=== PATIENT | female | born 1950 | race Caucasian/White ===

== ENCOUNTER → 2016-05-15 | Day surgery (SDC) | payer MEDICARE ==
[~2016-05-15] MED LIST: Betamethasone INJ* 6 MG/ML 5 ML VIAL (30 MG) ONE; Lidocain 1% EPI 1:100,000 * 30 ML MDV ONE; Lidocaine 1% MPF* 2 ML VIAL ONE; Sodium Bicarbonate 8.4% SYR* 10 ML SYRINGE ONE
[2016-05-15 14:34] VITALS: BP 133/76
--- NOTE | 2016-05-16 02:40 | OP ---
DATE OF OPERATION: 05/15/16 LOCATED WITHIN [facility] DATE OF : 46 SURGEON: Jeff Tesfaye MD. PERMIT REVIEW ASSISTANT: MELISA Villa. ANESTHESIOLOGIST: None. ANESTHESIA: Local only, with 1% lidocaine with epinephrine. PRE-OP DIAGNOSES: 1. Right thumb trigger finger. 2. Left long finger trigger finger. 3. Left long finger volar ganglion cyst of the A1 jerilyn. POST-OP DIAGNOSES: 1. Right thumb trigger finger. 2. Left long finger trigger finger. 3. Left long finger volar ganglion cyst of the A1 jerilyn. OPERATIVE PROCEDURES: 1. Right thumb A1 jerilyn release. 2. Left long finger trigger finger injection. 3. Aspiration of left long finger volar A1 jerilyn ganglion cyst. INDICATIONS: Мария is a 65-year-old female who has right thumb and left long finger trigger fingers. I had injected these in the office a couple of months ago. The left long finger had gotten all the way better and was doing great when I saw her in the office a couple of weeks ago. The right thumb was triggering again. We had talked about risks and benefits and she had elected to proceed with right thumb trigger finger release. 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 ESTIMATED BLOOD LOSS: 5 mL. COMPLICATIONS: None. FINDINGS: As expected. DESCRIPTION OF PROCEDURE: Мария was seen in the preoperative holding area and the correct side and site were marked. I then cleansed the skin with some alcohol and injected lidocaine 1% with epinephrine and a little bit of bicarbonate into the right thumb A1 jerilyn area to anesthetize the area. After I finished that, I went over and cleaned up the area over the volar A1 jerilyn area of the left long finger. Using a 30-gauge needle, I then introduced a little bit of 1% lidocaine with epinephrine and betamethasone, approximately 0.5 cc. I waited a minute and then I introduced a 22-gauge needle through the skin in the anesthetized area. This was taken down to the area of the volar retinacular cyst. The tip of the needle was used to aguilar the cyst and then by applying some pressure over the area of the cyst, I was able to drain the cyst. A 22-gauge needle was withdrawn and I then re- introduced a 30-gauge needle and injected the rest of 1 mL of 1% lidocaine and 1 mL of betamethasone. She tolerated this well. The area was cleansed and Band-Aid was applied. We then came back to the operating room where the right arm was prepped and draped in the usual fashion and a formal time-out was performed. Incision was made along the volar metacarpophalangeal joint flexion crease. Dissection was done with a tenotomy scissors. The ulnar and radial digital nerves to the thumb were identified and protected with some Ragnell retractors. I then used the knife to incise longitudinally the A1 jerilyn area over the right thumb. This was very thickened and nodular. I ultimately was able to get down to the tendon. I then completed the release by releasing just a little bit more distally and proximally with a tenotomy scissors. The tendon did appear healthy. I then let down the drapes so she could see and I had her flex and extend the thumb many times to see if she can induce any triggering whatsoever. She could not. I then went ahead and irrigated the area and closed the skin with some 5-0 nylon suture. The wound was dressed with Xeroform , 4x4, 2-inch Webril, and an Alejandro wrap. She was then taken to the recovery room in stable condition. [id number] #: [id number] MTDTrent
== END | disposition home or self-care (01) ==
LOC: OREAST 09:35
PROVIDERS: ATTEND Orthopaedic Surgery Hand Surgery
DX: M65.311 Trigger thumb, right thumb (principal); M65.332 Trigger finger, left middle finger; M67.442 Ganglion, left hand
CPT/HCPCS: J0702

== ENCOUNTER 2017-08-09 06:27 | Day surgery (SDC) | payer MEDICARE ==
[2017-08-09] MEDS ORDERED: Bupivacaine 0.25% SDV* 30 ML ONE (07:06)
[2017-08-09] MEDS ORDERED: Lidocain 1% EPI 1:100,000 * 30 ML MDV ONE (07:18)
[2017-08-09] MEDS ORDERED: Sodium Bicarbonate 8.4%* 50 ML SYRINGE ONE (07:18)
[2017-08-09 08:03] VITALS: BP 125/72
--- NOTE | 2017-08-09 14:06 | OP ---
DATE OF OPERATION: 08/09/17 - [facility] DATE OF : 46 SURGEON: Jeff Tesfaye MD. SUPPORTIVE EMPLOYMENT CASE MANAGER: MELISA Tay. ANESTHESIOLOGIST: None. ANESTHESIA: Local only with 1% lidocaine with bicarbonate and epinephrine. PRE-OP DIAGNOSES: 1. Left middle trigger finger. 2. Left middle finger A1 jerilyn tendon sheath mass. POST-OP DIAGNOSES: 1. Left middle trigger finger. 2. Left middle finger A1 jerilyn tendon sheath mass. OPERATIVE PROCEDURE: 1. Excision of left middle finger tendon sheath mass. 2. Left middle finger A1 jerilyn release. INDICATIONS: Мария has had a chronic left middle trigger finger. She had done well with right trigger thumb release. The nodule was quite bothersome to her. It was large, wanted to have it excised, and the trigger finger released. ESTIMATED BLOOD LOSS: 5 mL. COMPLICATIONS: None. FINDINGS: See above and below. DESCRIPTION OF PROCEDURE: Мария was seen in the preoperative holding area. The correct side, site, and procedure were identified. I anesthetized the area with 1% lidocaine with epinephrine and bicarbonate. We came back to the operating room. The arm was prepped and draped in the usual fashion. I then made an oblique incision along the flexion crease. Dissection was carried down bluntly and full thickness flaps were raised off the mass of the palmar aspect of the A1 jerilyn. This was excised with the knife. It was sent as a specimen. I then incised longitudinally the A1 jerilyn just on the radial third of the jerilyn in line with the tendon. Release was completed distally and proximally with tenotomy scissors. Once it was fully released, we irrigated out the wound. I had her flex and extend the finger multiple times. She did not induce any triggering. Therefore, I irrigated out the wound. Skin was closed with 4-0 nylon suture. Some Marcaine was infiltrated. The wound was dressed with Xeroform, some gauze, and Tegaderm. She was taken to the recovery room in stable condition. [id number] #: [id number] MTDD
== END 2017-08-09 08:12 | disposition home or self-care (01) ==
LOC: OREAST 06:27
PROVIDERS: ATTEND Orthopaedic Surgery Hand Surgery
DX: M65.332 Trigger finger, left middle finger (principal); M67.442 Ganglion, left hand
CPT/HCPCS: 88304

== ENCOUNTER 2018-01-19 10:56 | Emergency (ER) | payer MEDICARE ==
--- OUTSIDE RECORDS SUMMARY | 2018-01-19 11:09 | XMS REPORT ---
:1950 External Reference #:[id number] Author Organization [facility] Address [address], [address] [place] [address] Phone [phone] Care Team Providers Name Role Phone Melissa Sanabria MD Care Team Information Lead Manufacturing Engineer Unavailable Melissa Sanabria MD Primary Care Physician Unavailable Payers Type Date Identification Numbers Payment Provider Subscriber Medicare Primary Policy Number: [id number] Medicare Мария Hurtado Group Name: Medicare [address] PayID: [id number] [place] [address] [facility] Part B Policy Number: [id number] [facility] Мария Hurtado PayID: [id number] [address] [place] [address] Problems Date Description Provider Status Onset: 05/17/2011 Chest pain Dalton Tyson Active M.D., FACC Onset: 05/17/2011 Palpitations Dalton Tyson Active M.D., FACC Onset: 01/12/2012 Pure hypercholesterolemia Myrick, Paula Brady, Active MSN, DATABASE ADMINISTRATOR Onset: 05/27/2012 Family history of malignant neoplasm Juno Plaza MD Active of breast Onset: 12/08/2014 Disorder of back Jeff Malin M.D. Active Onset: 08/01/2011 Bladder muscle dysfunction - Sanjuanita Gonzalez FNP Active overactive Onset: 08/01/2011 Intrinsic asthma without status Sanjuanita Gonzalez FNP Active asthmaticus Onset: 08/01/2011 Gastroesophageal reflux disease Sanjuanita Gonzalez FNP Active Onset: 02/22/2015 Osteopenia Mackenzie Hernandez M.D. Active Onset: 05/20/2015 Essential hypertension Dalton Tyson Active M.D., [facility] Onset: 08/02/2015 Acute bronchitis Melissa Sanabria MD Active Onset: 08/05/2015 Exacerbation of intermittent asthma Melissa Sanabria MD Active Onset: 08/16/2015 Malaise and fatigue Melissa Sanabria MD Active Onset: 08/16/2015 Mild intermittent asthma Melissa Sanabria MD Active Onset: 11/10/2015 Spontaneous ecchymosis Melissa Sanabria MD Active Onset: 08/28/2016 Mild intermittent asthma Melissa Sanabria MD Active Onset: 08/28/2016 Paroxysmal supraventricular Melissa Sanabria MD Active tachycardia Onset: 08/28/2016 Edema Melissa Sanabria MD Active Onset: 08/28/2016 Polyosteoarthritis, unspecified Melissa Sanabria MD Active Onset: 03/07/2017 Gynecologic examination Melissa Sanabria MD Active Onset: 09/05/2017 Screening for malignant neoplasm of Melissa Sanabria MD Active colon Onset: 09/05/2017 Mild persistent asthma Melissa Sanabria MD Active Onset: 08/28/2016 Mixed hyperlipidemia Active Family History Date Family Member(s) Problem(s) Comments : (age 69 Father due to Heart ME, AND KIDNEY DISEASE Years) Disease Father Heart Attack Father Kidney Disease Onset: (age 93 Mother No known family history Years) of CAD. 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 [employer] Work Status Retired ADL's/IADL's Independent with all ADL's Hobbies Reading Hobbies Gardening Cigarette Use Never Smoked Cigarettes Smokeless Tobacco Never Used Smokeless Tobacco ETOH Use Denies alcohol use Smoking Patient has never smoked Recreational Drug Use Never Used Drugs Daily Caffeine Consumes on average 1 cup of regular coffee per day Daily Caffeine Consumes on average 16oz per GREEN TEA 2/DAY day Allergies, Adverse Reactions, Alerts Date Description Reaction Status Severity Comments 04/19/2015 Diltiazem active heart palpitations 04/24/2011 NKDA inactive Medications Medication Date Status Form Strength Qnty SIG Indications Ordering Provider Golytely 12/20 Active Solution Rec 236gm 4000m drink half Z12.11 l the evening , Rudi, before and MD half the morning of the procedure (1 cup every 10') Dulcolax 12/[address] 5mg 4tabs 4 tablets Z03.19 taken a 8pm , Rudi, the day MD before the procedure Magnesium 12/20 Active Solution 1.745GM/3 296ml Z03.19 Citrate 0ML , Rudi MD Atorvastatin 02/16 Active Tablets 10mg 90tab Take One E78.0 Daniele, Calcium s Tablet By MD Melissa Mouth AT Bedtime Eq Allergy 06/22 Active Tablets 10mg 90tab take one Daniele, Relief s tablet by MD Melissa mouth once daily Omeprazole 08/[address] 20mg 90cap Take One s Capsule By MD Melissa Mouth Once Daily Ventolin HFA 08/01 Active Aerosol 108(90Bas 8gm 2 puffs by e) mouth every MD Melissa mcg/Act 4 hours as needed Vitamin D 05/09 Active Tablets 1000Unit 2 by mouth q Mary, (Cholecalcifer 2013 Mackenzie maldonado MD Imipramine HCL Active Tablets 25mg 1 tab po qhs Botox Active Solution Rec 200Unit Gets Them Q 4 Months Flonase Active Suspension 50mcg/Act 19.8m 1 spray in Daniele, Allergy l each nostril MD Melissa once a day day Calcium Active Tablets 2 by mouth Hernandez, Citrate + every day Lynnette Mann Bystolic Active Tablets 5mg 45tab Take Daniele s One-Half MD Melissa Tablet By Mouth Once Daily Asmanex HFA Active Aerosol 200mcg/Ac take 1 puff t twice a day. Pulmicort 12/04 Hx Aerosol 180mcg/Ac 1unit 1 inh every J45.20 Alecia Sanabria t s 12 hrs MD Melissa - 12/20 Bystolic 05/26 Hx Tablets 2.5mg 30tab 1 by mouth s every , Dalton Carrera M.D., [facility] Asmanex 02/16 Hx Aerosol 220mcg/In 2unit 1 to 2 J45.20 Emily Sanabria 120 h s puffs/day MD Melissa Metered Doses - 12/04 Fluconazole 08/05 Hx Tablets 100mg 4tabs 1 by mouth Daniele, every day MD Melissa - until gone 08/15 Ciprofloxacin 08/04 Hx Tablets 500mg 20tab 1 by mouth J45.21 Daniele s twice a day MD Melissa - 08/15 Prednisone 08/04 Hx Tablets 50mg 5tabs 1 by mouth J45.21 Daniele every day MD Melissa - until gone 08/15 Bystolic 05/20 Hx Tablets 5mg 30tab take 1/2 Elen, s tablet by Paula - mouth every 05/26 day , MSN, /2016 DATABASE ADMINISTRATOR Amoxicillin 05/10 Hx Tablets 500mg 20tab 1 twice J04.0 Mary, s times a day Mackenzie Buitrago M.D. 05/20 Dilt-XR 04/16 Hx Caps ER 24HR 120mg 30cap 1 cap by R00.2 Elen, s mouth every Paula - day Simonetta 04/19 , MSN, /2015 DATABASE ADMINISTRATOR Celecoxib 12/01 Hx Capsules 200mg 30cap 1 by mouth 719.45 Mary /2014 s every day Mackenzie Buitrago M.D. 12/08 Doxycycline 08/27 Hx Capsules 100mg 28cap 1 cap (or E906.4 Alpa Hernandez s tab) by Mackenzie - maya twice , MVenitaDVenita 09/16 a day /2014 Diflucan 08/10 Hx Tablets 150mg 1tabs take 1 by 112.1 Jany, /2014 mouth Erikanikrystyna mauricio, DATABASE ADMINISTRATOR Claritin 06/26 Hx Capsules 10mg 90cap 1 by mouth Daniele s every day MD Melissa - 06/22 Antipyrine-Law 06/19 Hx Solution 5.4-1.4% 1unit 2-3 dropps Mary zocaine s in each ear Mackenzie - q3-4 hours , 08/10 [facility] Hx Tablets 5mg 90tab take one Myrick s tablet by Paula - mouth every sree 02/20 day , MSN, DATABASE ADMINISTRATOR [facility] 02/04 Hx Suppository 0.25-3-85 1unit 1 Mary Hemorrhoidal .5% s suppository Mackenzie - per rectum , 08/10 up to times a day [facility] 01/13 Hx Tablets 5mg 30tab Take One 780.4 Myrick s Tablet By Paula Mouth Every Day , MSN, DATABASE ADMINISTRATOR 785.1 401.1 Asmanex 60 04/04/2012 - Hx Aerosol 220mcg/Inh 3units qam 2 puff Mary, Metered Doses 02/17/2016 MD Mackenzie Bystolic 01/12/2012 - Hx Tablets 2.5mg 1 by mouth 780. Elen, Paula 01/13/2013 every day 4 FOREST Brady, DATABASE ADMINISTRATOR 785.1 401.1 Aspirin 01/12/2012 Hx Tablets 81mg 1 by mouth 780.4 Elen, Paula every day FOREST Brady, DATABASE ADMINISTRATOR Bystolic 04/24/2011 - Hx Tablets 5mg 30tabs tab po qd 780.4 Elen, Paula 01/12/2012 FOREST Brady, DATABASE ADMINISTRATOR 785.1 401.1 Baby Aspirin Hx Tablets 81mg 1 po qd Unknown Calcium 600 Hx Tablets 1200mg 1 po qd Unknown Fosamax - Hx Tablets 70mg 1 po qweek Unknown 12/01/2014 Amoxicillin Hx Tablets 1000mg po qd Unknown Nasonex Hx Suspension 50mcg/Act 1 intranasal qd Unknown Vitamin D - Hx Capsules 1000Unit 60cap 1 po qd Unknown 08/10/2014 s Alprazolam Hx Tablets 0.25mg 60tab 1 po qd Unknown s Bystolic - Hx Tablets 2.5mg 1 by mouth 780.4 Unknown 02/20/2014 every day 785.1 401.1 Paxil - Hx Tablets 10mg 1/2 po qd Unknown 08/10/2014 Omeprazole - Hx Capsules DR 20mg 90cap 1 by mouth Mary, 12/08/2014 s every day MD Mackenzie 12 Hour Hx Tablets ER 120mg 20tab 1 by mouth Mary, Decongestant 12HR s twice a day Mackenzie, as needed Lipitor - Hx Tablets 10mg 90tab take 1 tab E78. Daniele, 02/16/2017 s by mouth at 0 MD Melissa bedtime Immunizations CPT Code Status Date Vaccine Lot # [id number] Given 02/17/2017 Influenza Vaccine Split Virus Preservative Free [place] Use [address]59 Given 08/28/2016 Tdap injection [id number] Given 02/22/2015 Influenza Vaccine (Fluzone) Age 3 And Older [id number] 46982 Given 02/22/2015 Pneumococcal Conjugate Vaccine 13 Valent For [id number] Intramuscular Use 14731 Given 02/09/2014 flu vaccination 05453 Given 02/04/2013 flu vaccination 10592 Given 03/08/2012 flu vaccination 39863 Given 11/14/2005 Pneumovax Injection 17839 Given 08/09/2004 Tdap injection Vital Signs Date Vital Result Comment 12/31/2017 BP Systolic 122 mmHg BP Diastolic 80 mmHg Body Temperature 96.5 F Heart Rate 88 /min Respiratory Rate 18 /min Height 61.5 inches 5'1.50" Weight 119.00 lb BMI (Body Mass Index) 22.1 kg/m2 BSA (Body Surface Area) 1.52 m2 Lead body weight in kilograms 49 O2 % BldC Oximetry 98 % 12/20/2017 BP Systolic Sitting Left Arm 115 mmHg BP Diastolic Sitting Left Arm 84 mmHg Heart Rate 79 /min Respiratory Rate 16 /min Height 61.5 inches 5'1.50" Weight 117.00 lb BMI (Body Mass Index) 21.7 kg/m2 BSA (Body Surface Area) 1.51 m2 Lead body weight in kilograms 49 O2 % BldC Oximetry 98 % 09/05/2017 BP Systolic 120 mmHg BP Diastolic 74 mmHg Body Temperature 96.4 F Heart Rate 74 /min irregular Respiratory Rate 18 /min Height 61.5 inches 5'1.50" Weight 118.00 lb BMI (Body Mass Index) 21.9 kg/m2 BSA (Body Surface Area) 1.52 m2 Lead body weight in kilograms 49 O2 % BldC Oximetry 98 % 03/07/2017 BP Systolic Sitting Left Arm 116 mmHg BP Diastolic Sitting Left Arm 52 mmHg Heart Rate 70 /min Height 61 inches 5'1" Weight 120.00 lb BMI (Body Mass Index) 22.7 kg/m2 BSA (Body Surface Area) 1.52 m2 Lead body weight in kilograms 48 08/28/2016 BP Systolic Sitting Right Arm 122 mmHg BP Diastolic Sitting Right Arm 78 mmHg Body Temperature 97.5 F Heart Rate 76 /min Respiratory Rate 22 /min Height 61 inches 5'1" Weight 120.00 lb BMI (Body Mass Index) 22.7 kg/m2 BSA (Body Surface Area) 1.52 m2 Lead body weight in kilograms 48 07/28/2016 BP Systolic Sitting Left Arm 120 mmHg BP Diastolic Sitting Left Arm 72 mmHg Heart Rate 76 /min Respiratory Rate 18 /min Height 61 inches 5'1" Weight 119.38 lb BMI (Body Mass Index) 22.6 kg/m2 BSA (Body Surface Area) 1.52 m2 Lead body weight in kilograms 48 01/10/2016 BP Systolic Lying Down Resting Right Arm 142 mmHg BP Diastolic Lying Down Resting Right Arm 82 mmHg Heart Rate 64 /min Respiratory Rate 18 /min Height 62 inches 5'2" Weight 118.00 lb BMI (Body Mass Index) 21.6 kg/m2 BSA (Body Surface Area) 1.53 m2 Lead body weight in kilograms 50 12/28/2015 BP Systolic Sitting Left Arm 116 mmHg BP Diastolic Sitting Left Arm 68 mmHg Heart Rate 82 /min Height 61 inches 5'1" Weight 115.00 lb BMI (Body Mass Index) 21.7 kg/m2 BSA (Body Surface Area) 1.49 m2 Lead body weight in kilograms 48 11/10/2015 BP Systolic Sitting Left Arm 122 mmHg BP Diastolic Sitting Left Arm 70 mmHg Weight 115.12 lb 08/16/2015 BP Systolic Sitting Right Arm 114 mmHg BP Diastolic Sitting Right Arm 68 mmHg Body Temperature 98.7 F Heart Rate 76 /min Respiratory Rate 20 /min Height 61.0 inches 5'1" Weight 120.00 lb BMI (Body Mass Index) 22.7 kg/m2 BSA (Body Surface Area) 1.52 m2 08/05/2015 BP Systolic 128 mmHg BP Diastolic 70 mmHg Body Temperature 98.9 F Height 61.0 inches 5'1" Weight 118.38 lb BMI (Body Mass Index) 22.4 kg/m2 BSA (Body Surface Area) 1.51 m2 08/02/2015 BP Systolic Sitting Left Arm 118 mmHg BP Diastolic Sitting Left Arm 74 mmHg Body Temperature 99.4 F Height 61 inches 5'1" Weight 120.00 lb BMI (Body Mass Index) 22.7 kg/m2 BSA (Body Surface Area) 1.52 m2 06/10/2015 BP Systolic Sitting Left Arm 122 mmHg BP Diastolic Sitting Left Arm 76 mmHg Heart Rate 80 /min Height 61 inches 5'1" Weight 121.00 lb BMI (Body Mass Index) 22.9 kg/m2 BSA (Body Surface Area) 1.53 m2 05/20/2015 BP Systolic Sitting Left Arm 126 mmHg BP Diastolic Sitting Left Arm 84 mmHg Heart Rate 120 /min Height 62 inches 5'2" Weight 119.00 lb BMI (Body Mass Index) 21.8 kg/m2 BSA (Body Surface Area) 1.53 m2 05/10/2015 BP Systolic Sitting Left Arm 138 mmHg BP Diastolic Sitting Left Arm 82 mmHg Heart Rate 78 /min Irreg Respiratory Rate 19 /min Height 60.75 inches 5'0.75" Weight 118.00 lb BMI (Body Mass Index) 22.5 kg/m2 BSA (Body Surface Area) 1.51 m2 04/16/2015 BP Systolic Sitting Right Arm 152 mmHg BP Diastolic Sitting Right Arm 82 mmHg Heart Rate 89 /min Respiratory Rate 16 /min Height 60.75 inches 5'0.75" Weight 119.00 lb BMI (Body Mass Index) 22.7 kg/m2 BSA (Body Surface Area) 1.51 m2 02/22/2015 BP Systolic Sitting Left Arm 124 mmHg BP Diastolic Sitting Left Arm 80 mmHg Heart Rate 81 /min Respiratory Rate 19 /min Height 60.75 inches 5'0.75" Weight 119.00 lb BMI (Body Mass Index) 22.7 kg/m2 BSA (Body Surface Area) 1.51 m2 12/08/2014 BP Systolic Sitting Left Arm 156 mmHg BP Diastolic Sitting Left Arm 92 mmHg Heart Rate 89 /min Height 60.75 inches 5'0.75" Weight 116.00 lb BMI (Body Mass Index) 22.1 kg/m2 BSA (Body Surface Area) 1.49 m2 O2 % BldC Oximetry 98 % 12/01/2014 BP Systolic Sitting Left Arm 124 mmHg BP Diastolic Sitting Left Arm 70 mmHg Heart Rate 76 /min Respiratory Rate 19 /min Height 61 inches 5'1" Weight 115.00 lb BMI (Body Mass Index) 21.7 kg/m2 BSA (Body Surface Area) 1.49 m2 09/16/2014 BP Systolic Sitting Left Arm 126 mmHg BP Diastolic Sitting Left Arm 78 mmHg Heart Rate 76 /min Respiratory Rate 19 /min Height 61 inches 5'1" Weight 117.00 lb BMI (Body Mass Index) 22.1 kg/m2 BSA (Body Surface Area) 1.50 m2 08/27/2014 BP Systolic Sitting Left Arm 114 mmHg BP Diastolic Sitting Left Arm 66 mmHg Body Temperature 98.2 F Height 61 inches 5'1" Weight 119.00 lb BMI (Body Mass Index) 22.5 kg/m2 BSA (Body Surface Area) 1.51 m2 08/27/2014 BP Systolic Sitting Right Arm 142 mmHg BP Diastolic Sitting Right Arm 82 mmHg Heart Rate 82 /min Respiratory Rate 16 /min Height 61 inches 5'1" Weight 118.00 lb BMI (Body Mass Index) 22.3 kg/m2 BSA (Body Surface Area) 1.51 m2 08/19/2014 BP Systolic Sitting Left Arm 118 mmHg BP Diastolic Sitting Left Arm 78 mmHg Heart Rate 82 /min Respiratory Rate 19 /min Height 61 inches 5'1" Weight 119.00 lb BMI (Body Mass Index) 22.5 kg/m2 BSA (Body Surface Area) 1.51 m2 08/10/2014 BP Systolic Sitting Left Arm 118 mmHg BP Diastolic Sitting Left Arm 72 mmHg Body Temperature 97.7 F Weight 120.00 lb 06/26/2014 BP Systolic 124 mmHg BP Diastolic 82 mmHg Body Temperature 98.3 F Heart Rate 91 /min Respiratory Rate 20 /min Height 61.5 inches 5'1.50" Weight 121.00 lb 06/19/2014 BP Systolic 138 mmHg BP Diastolic 80 mmHg Body Temperature 98.4 F Heart Rate 68 /min Respiratory Rate 19 /min Height 61.5 inches 5'1.50" Weight 118.00 lb 03/10/2014 BP Systolic 128 mmHg BP Diastolic 74 mmHg Height 61.5 inches 5'1.50" Weight 118.00 lb 02/20/2014 BP Systolic 120 mmHg BP Diastolic 78 mmHg Heart Rate 80 /min Height 61.5 inches 5'1.50" Weight 117.00 lb 02/09/2014 BP Systolic 118 mmHg BP Diastolic 66 mmHg Heart Rate 70 /min Height 61.5 inches 5'1.50" Weight 117.00 lb 12/01/2013 BP Systolic 108 mmHg BP Diastolic 66 mmHg Height 61.5 inches 5'1.50" Weight 118.00 lb 11/14/2013 BP Systolic 144 mmHg BP Diastolic 88 mmHg Heart Rate 80 /min Height 61.5 inches 5'1.50" Weight 116.00 lb 08/19/2013 BP Systolic 112 mmHg BP Diastolic 70 mmHg Heart Rate 80 /min Height 61.5 inches 5'1.50" Weight 115.00 lb 08/06/2013 BP Systolic 124 mmHg BP Diastolic 82 mmHg Heart Rate 80 /min Height 61.5 inches 5'1.50" Weight 116.00 lb 08/04/2013 BP Systolic Sitting Left Arm 118 mmHg BP Diastolic Sitting Left Arm 72 mmHg Heart Rate 84 /min Respiratory Rate 16 /min Height 62 inches 5'2" Weight 123.50 lb BMI (Body Mass Index) 22.6 kg/m2 BSA (Body Surface Area) 1.56 m2 06/06/2013 BP Systolic 110 mmHg BP Diastolic 64 mmHg Heart Rate 80 /min Height 61.5 inches 5'1.50" Weight 118.00 lb 05/09/2013 BP Systolic 120 mmHg BP Diastolic 70 mmHg Body Temperature 98.1 F Heart Rate 68 /min Height 61.5 inches 5'1.50" Weight 116.00 lb 02/19/2013 BP Systolic 116 mmHg BP Diastolic 72 mmHg Body Temperature 98.3 F Height 61.5 inches 5'1.50" Weight 120.00 lb 02/04/2013 BP Systolic 118 mmHg BP Diastolic 72 mmHg Body Temperature 98.1 F Height 61.5 inches 5'1.50" Weight 121.00 lb 12/06/2012 BP Systolic 96 mmHg BP Diastolic 66 mmHg Height 62 inches 5'2" Weight 113.00 lb 08/26/2012 BP Systolic 108 mmHg BP Diastolic 72 mmHg Height 62 inches 5'2" Weight 118.00 lb 07/26/2012 BP Systolic 122 mmHg BP Diastolic 78 mmHg Body Temperature 98.0 F Height 62 inches 5'2" Weight 116.00 lb 07/23/2012 BP Systolic Sitting Right Arm 118 mmHg BP Diastolic Sitting Right Arm 72 mmHg Heart Rate 80 /min Respiratory Rate 16 /min Height 62 inches 5'2" Weight 119.00 lb BMI (Body Mass Index) 21.8 kg/m2 06/25/2012 BP Systolic 100 mmHg BP Diastolic 74 mmHg Height 62 inches 5'2" Weight 117.00 lb 05/07/2012 BP Systolic 116 mmHg BP Diastolic 76 mmHg Height 62 inches 5'2" Weight 119.00 lb 04/04/2012 BP Systolic 94 mmHg BP Diastolic 68 mmHg Body Temperature 98.0 F Height 62 inches 5'2" Weight 117.00 lb 03/12/2012 BP Systolic 120 mmHg BP Diastolic 80 mmHg Height 62 inches 5'2" Weight 117.00 lb 01/12/2012 BP Systolic Sitting Left Arm 102 mmHg BP Diastolic Sitting Left Arm 64 mmHg Heart Rate 78 /min Respiratory Rate 16 /min Height 62 inches 5'2" Weight 116.00 lb BMI (Body Mass Index) 21.2 kg/m2 11/02/2011 BP Systolic 116 mmHg BP Diastolic 78 mmHg Heart Rate 68 /min Height 62 inches 5'2" Weight 111.00 lb 09/21/2011 BP Systolic 114 mmHg BP Diastolic 76 mmHg Body Temperature 98.3 F Height 62 inches 5'2" Weight 116.00 lb 08/22/2011 BP Systolic 120 mmHg BP Diastolic 82 mmHg Height 62 inches 5'2" Weight 116.00 lb 08/08/2011 BP Systolic 114 mmHg BP Diastolic 66 mmHg Height 62 inches 5'2" Weight 118.00 lb 08/01/2011 BP Systolic 126 mmHg BP Diastolic 84 mmHg Body Temperature 97.7 F Height 62 inches 5'2" Weight 119.00 lb 06/20/2011 BP Systolic Sitting Left Arm 124 mmHg BP Diastolic Sitting Left Arm 76 mmHg Heart Rate 72 /min Respiratory Rate 16 /min Height 62 inches 5'2" Weight 114.00 lb BMI (Body Mass Index) 20.8 kg/m2 05/17/2011 BP Systolic Sitting Left Arm 136 mmHg BP Diastolic Sitting Left Arm 80 mmHg Heart Rate 84 /min Respiratory Rate 16 /min Height 62 inches 5'2" Weight 115.00 lb BMI (Body Mass Index) 21.0 kg/m2 04/24/2011 BP Systolic Sitting Right Arm 138 mmHg BP Diastolic Sitting Right Arm 88 mmHg Heart Rate 89 /min Respiratory Rate 16 /min Height 62 inches 5'2" Weight 112.00 lb BMI (Body Mass Index) 20.5 kg/m2 Results Test Date Test Result H/L Range Note 230 Ua Routine 10/17/2017 Ua Bilirubin Negative Ua Blood Trace-intact Ua Clarity Clear Ua Color Yellow Ua Glucose Negative Ua Ketones Negative Ua Leuko Negative Ua Nitrite Negative Ua PH 7.5 1 5.0-7.5 Ua Protein Negative Ua Specific [place] 1.015 1 1.003-1.030 Ua Urobilinogen 0.2 E.U./dL 0.0-1.0 LDL Cholesterol Profile 09/06/2017 Cholesterol 157 mg/dL <200 1, 2 Triglycerides 93 mg/dL <150 1, 3 HDL Cholesterol 66 mg/dL >40 1, 4 LDL-Cholesterol 72 mg/dL < 100 1, 5 Comprehensive Metabolic Panel 09/06/2017 Glucose 89 mg/dL 74-106 1 BUN 20 mg/dL High 7-18 1 Creatinine 1.3 mg/dL 0.6-1.3 1 Glom Filtration Rate, Estimate 43 mL/min >60 1 If 52 mL/min >60 1, 6 BUN/Creat 15.3 ratio 1 Sodium 140 mmol/L 136-145 1 Potassium 4.1 mmol/L 3.5-5.1 1 Chloride 105 mmol/L 98-107 1 Carbon Dioxide 29 mmol/L 21-32 1 Anion Gap 6 mEq/L Low 8-16 1 Calcium 9.2 mg/dL 8.5-10.1 1 Total Protein 6.7 g/dL 6.4-8.2 1 Albumin 3.5 g/dL 3.4-5.0 1 Globulin 3.2 g/dL 1.9-4.3 1 Alb/Glob 1.1 ratio 1 Bilirubin,Total 0.8 mg/dL 0.2-1.0 1 Sgot/Ast 20 U/L 15-37 1 SGPT/Alt 25 U/L 12-78 1 Alkaline Phosphatase 62 U/L 45-117 1 CBS W/Automated Diff 09/06/2017 White Blood Count 5.9 K/uL 3.1-10.7 1 Red Blood Count 4.30 M/uL 3.90-5.40 1 Hemoglobin 13.8 gm/dL 11.6-15.8 1 Hematocrit 41.3 % 36.0-46.1 1 Mean Cell Volume 96.0 fl 80.9-99.0 1 Mean Corpuscular HGB 32.1 pg 25.9-32.7 1 Mean Corpuscular HGB Conc 33.4 g/dL 30.8-34.3 1 Platelet Count 196 K/uL 155-360 1 Red Cell Distri Width SD 46.9 fl 3-47 1 Red Cell Distri Width %CV 13.7 % 11.7-14.4 1 Mean Platelet Volume 10.6 fL 8.9-12.4 1 Neut% 55.0 % 40.4-72.8 1 Lymph % 32.0 % 20.0-42.0 1 [place] % 11.1 % 4.3-13.2 1 Eo% 1.2 % 0.0-6.6 1 Bas% 0.7 % 0.0-1.1 1 Neut# 3.27 K/uL 1.8-7.0 1 Lymph # 1.90 K/uL 1.0-4.0 1 [place] # 0.66 K/uL 0.3-0.9 1 Eos # 0.07 K/uL 0.0-0.5 1 Baso # 0.04 K/uL 0.0-0.1 1 Laboratory test finding 08/29/2016 Vitamin D,25-Hydroxy 49.3 ng/mL 30.0- 100.0 7, 8 Lyme Total AB/Reflex To WB < 0.91 ISR 0.00-0.90 7, 9 HCV Stefany Qual Reflex Ilene 08/29/2016 HCV Rna Stefany QL Negative Negative 7, 10 Comprehensive Metabolic Panel 08/29/2016 Glucose 90 mg/dL 74-106 7 BUN 15 mg/dL 7-18 7 Creatinine 1.0 mg/dL 0.6-1.3 7 Glom Filtration Rate, Estimate 59 mL/min >60 7 If >60 mL/min >60 7, 11 BUN/Creat 15.0 ratio 7 Sodium 143 mmol/L 136-145 7 Potassium 4.2 mmol/L 3.5-5.1 7 Chloride 106 mmol/L 98-107 7 Carbon Dioxide 29 mmol/L 21-32 7 Anion Gap 8 mEq/L 8-16 7 Calcium 9.5 mg/dL 8.5-10.1 7 Total Protein 6.8 g/dL 6.4-8.2 7 Albumin 3.5 g/dL 3.4-5.0 7 Globulin 3.3 g/dL 1.9-4.3 7 Alb/Glob 1.1 ratio 7 Bilirubin,Total 0.7 mg/dL 0.2-1.0 7 Sgot/Ast 21 U/L 15-37 7 SGPT/Alt 27 U/L 12-78 7 Alkaline Phosphatase 64 U/L 45-117 7 CBS W/Automated Diff 08/29/2016 White Blood Count 5.7 K/uL 3.1-10.7 7 Red Blood Count 4.36 M/uL 3.90-5.40 7 Hemoglobin 14.0 gm/dL 11.6-15.8 7 Hematocrit 41.9 % 36.0-46.1 7 Mean Cell Volume 96.1 fl 80.9-99.0 7 Mean Corpuscular HGB 32.1 pg 25.9-32.7 7 Mean Corpuscular HGB Conc 33.4 g/dL 30.8-34.3 7 Platelet Count 217 K/uL 150-400 7 Red Cell Distri Width SD 45.8 fl 3-47 7 Red Cell Distri Width %CV 13.4 % 11.7-14.4 7 Mean Platelet Volume 10.3 fL 8.9-12.4 7 Neut% 60.3 % 40.4-72.8 7 Lymph % 25.7 % 20.0-42.0 7 [place] % 10.3 % 4.3-13.2 7 Eo% 3.0 % 0.0-6.6 7 Bas% 0.7 % 0.0-1.1 7 Neut# 3.44 K/uL 1.8-7.0 7 Lymph # 1.47 K/uL 1.0-4.0 7 [place] # 0.59 K/uL 0.3-0.9 7 Eos # 0.17 K/uL 0.0-0.5 7 Baso # 0.04 K/uL 0.0-0.1 7 LDL Cholesterol Profile 08/29/2016 Cholesterol 174 mg/dL <200 7, 12 Triglycerides 104 mg/dL <150 7, 13 HDL Cholesterol 66 mg/dL >40 7, 14 LDL-Cholesterol 87 mg/dL < 100 7, 15 CBC W/Automated Diff 11/10/2015 White Blood Count 7.6 K/uL 3.1-10.7 Red Blood Count 4.30 M/uL 3.90-5.40 Hemoglobin 13.6 gm/dL 11.6-15.8 Hematocrit 41.8 % 36.0-46.1 Mean Cell Volume 97.2 fl 80.9-99.0 Mean Corpuscular HGB 31.6 pg 25.9-32.7 Mean Corpuscular HGB Conc 32.5 g/dL 30.8-34.3 Platelet Count 225 K/uL 155-360 Red Cell Distri Width SD 47.8 fl High 3-47 Red Cell Distri Width %CV 13.7 % 11.7-14.4 Mean Platelet Volume 10.3 fL 8.9-12.4 Neut% 66.1 % 40.4-72.8 Lymph % 21.2 % 17.0-46.1 [place] % 10.7 % 4.3-13.2 Eo% 1.6 % 0.0-6.6 Bas% 0.4 % 0.0-1.1 Neut# 5.02 K/uL 1.8-7.0 Lymph # 1.61 K/uL Low 1.8-7.0 [place] # 0.81 K/uL 0.3-0.9 Eos # 0.12 K/uL 0.0-0.5 Baso # 0.03 K/uL 0.0-0.1 CBC W/Automated Diff 08/16/2015 White Blood Count 9.6 K/uL 3.1-10.7 Red Blood Count 4.08 M/uL 3.90-5.40 Hemoglobin 13.1 gm/dL 11.6-15.8 Hematocrit 39.5 % 36.0-46.1 Mean Cell Volume 96.8 fl 80.9-99.0 Mean Corpuscular HGB 32.1 pg 25.9-32.7 Mean Corpuscular HGB Conc 33.2 g/dL 30.8-34.3 Platelet Count 229 K/uL 155-360 Red Cell Distri Width SD 47.9 fl High 3-47 Red Cell Distri Width %CV 14.1 % 11.7-14.4 Mean Platelet Volume 10.5 fL 8.9-12.4 Neut% 72.2 % 40.4-72.8 Lymph % 16.0 % Low 17.0-46.1 [place] % 9.9 % 4.3-13.2 Eo% 1.7 % 0.0-6.6 Bas% 0.2 % 0.0-1.1 Neut# 6.97 K/uL 1.8-7.0 Lymph # 1.54 K/uL Low 1.8-7.0 [place] # 0.95 K/uL High 0.3-0.9 Eos # 0.16 K/uL 0.0-0.5 Baso # 0.02 K/uL 0.0-0.1 Basic Metabolic Panel 08/16/2015 Glucose 103 mg/dL 74-106 BUN 23 mg/dL High 7-18 Creatinine 1.1 mg/dL 0.6-1.3 Glom Filtration Rate, Estimate 53 mL/min >60 If >60 mL/min >60 16 BUN/Creat 20.9 ratio Sodium 138 mmol/L 136-145 Potassium 4.2 mmol/L 3.5-5.1 Chloride 105 mmol/L 98-107 Carbon Dioxide 29 mmol/L 21-32 Anion Gap 4 mEq/L Low 8-16 Calcium 8.7 mg/dL 8.5-10.1 Laboratory test finding 08/16/2015 Thyroid Stim Hormone 1.30 uIU/mL 0.30- 4.20 Laboratory test finding 05/10/2015 Thyroid Stim Hormone 2.16 uIU/mL 0.36- 3.74 LDL Cholesterol Profile 08/19/2014 Cholesterol 175 mg/dL 150-200 17 Triglycerides 68 mg/dL 50-150 18 HDL Cholesterol 73 mg/dL 60-150 19 LDL-Cholesterol 88 mg/dL 75-100 20 Liver Function Tests 08/19/2014 Total Protein 6.7 g/dL 6.4-8.2 Albumin 3.6 g/dL 3.4-5.0 Globulin 3.1 g/dL 1.9-4.3 Alb/Glob 1.2 ratio Bilirubin,Total 0.7 mg/dL 0.2-1.0 Bilirubin,Direct 0.1 mg/dL 0.0-0.2 Bilirubin,Indirect 0.6 mg/dL 0.0-0.9 Sgot/Ast 22 U/L 15-37 SGPT/Alt 26 U/L 12-78 Alkaline Phosphatase 61 U/L 45-117 Basic Metabolic Panel 08/19/2014 Glucose 87 mg/dL 74-106 BUN 23 mg/dL High 7-18 Creatinine 1.0 mg/dL 0.6-1.3 Glom Filtration Rate, Estimate 59 mL/min >60 If >60 mL/min >60 21 BUN/Creat 23.0 ratio Sodium 140 mmol/L 136-145 Potassium 3.9 mmol/L 3.5-5.1 Chloride 104 mmol/L 98-107 Carbon Dioxide 31 mmol/L 21-32 Anion Gap 5 mEq/L Low 8-16 Calcium 9.1 mg/dL 8.5-10.1 Laboratory test finding 08/19/2014 Fit Hemoccult negative Affirm 08/10/2014 Trichomonas vaginalis Negative [Negative] 22 Gardnerella vaginalis Negative [Negative] 22 Lexie species POSITIVE High [Negative] 22 Laboratory test finding 03/10/2014 Act Partial Thrombo Time 25.2 s 23.9- 34.3 23 CBC/Manual Differential 03/10/2014 Anisocytosis 0-1+ Band% 2 % 0-8 Basophil% 1 % 0-2 Eosinophil% 3 % 0-5 Hematocrit 39.6 % 36.0-46.1 Hemoglobin 13.0 gm/dL 11.6-15.8 Lymph% 23 % 17-56 Mean Cell Volume 95.9 fl 80.9-99.0 Mean Corpuscular HGB 31.5 pg 25.9-32.7 Mean Corpuscular HGB Conc 32.8 g/dL 30.8-34.3 Mean Platelet Volume 9.6 fL 8.9-12.4 Monocyte% 8 % 0-10 Neutrophils% 63 % 33-73 Platelet Count 209 K/uL 155-360 Platelet Estimate Normal Poikilocytosis 0-1+ Red Blood Count 4.13 M/uL 3.90-5.40 Red Cell Distri Width %CV 13.4 % 11.7-14.4 Total Cells Counted 100 #CELLS White Blood Count 6.1 K/uL 3.1-10.7 Protime 03/10/2014 Inr 1.0 0.9-1.1 24 Protime 13.1 s 12.1-14.9 Laboratory test 02/20/2014 Anti-Nuclear Negative AU/mL Negative 25 finding Antibodies Direct Laboratory test 11/14/2013 Thyroid Stim Hormone 2.44 uIU/mL 0.49-4.67 finding Basic Metabolic Panel 11/14/2013 Anion Gap 8 mEq/L 8-16 BUN 20 mg/dL 5-23 BUN/Creat 16.6 ratio Calcium 9.7 mg/dL 8.5-10.1 Carbon Dioxide 32 mEq/L High 18-29 Chloride 104 mmol/L 98-107 Creatinine 1.2 mg/dL 0.5-1.4 Glom Filtration Rate, Estimate 48 mL/min >60 Glucose 108 mg/dL 76-115 If 58 mL/min >60 26 Potassium 4.1 mmol/L 3.5-5.1 Sodium 140 mmol/L 136-145 CBC/Manual Differential 11/14/2013 Band% 1 % 0-8 Eosinophil% 1 % 0-5 Hematocrit 41.2 % 36.0-46.1 Hemoglobin 13.9 gm/dL 11.6-15.8 Lymph% 18 % 17-56 Mean Cell Volume 97.4 fl 80.9-99.0 Mean Corpuscular HGB 32.9 pg High 25.9-32.7 Mean Corpuscular HGB Conc 33.7 g/dL 30.8-34.3 Mean Platelet Volume 9.7 fL 8.9-12.4 Monocyte% 9 % 0-10 Neutrophils% 71 % 33-73 Platelet Count 232 K/uL 155-360 Platelet Estimate Normal RBC Morphology Normal Red Blood Count 4.23 M/uL 3.90-5.40 Red Cell Distri Width %CV 13.6 % 11.7-14.4 Total Cells Counted 100 #CELLS White Blood Count 7.0 K/uL 3.1-10.7 LDL Cholesterol Profile 11/14/2013 Cholesterol 177 mg/dL 120-200 HDL Cholesterol 68 mg/dL 29-83 LDL-Cholesterol 76 mg/dL 62-185 Triglycerides 166 mg/dL 16-231 Liver Function Tests 11/14/2013 Alb/Glob 1.2 ratio Albumin 3.5 g/dL 3.5-5.0 Alkaline Phosphatase 64 U/L 50-136 Bilirubin,Direct 0.1 mg/dL 0.1-0.4 Bilirubin,Indirect 0.5 mg/dL 0.0-0.9 Bilirubin,Total 0.6 mg/dL 0.2-1.2 Globulin 3.0 g/dL 1.9-4.3 SGPT/Alt 29 U/L Low 30-65 Sgot/Ast 22 U/L 16-40 Total Protein 6.5 g/dL 6.3-8.0 Comprehensive Metabolic Panel 06/06/2013 Alb/Glob 1.0 ratio Albumin 3.5 g/dL 3.5-5.0 Alkaline Phosphatase 65 U/L 50-136 Anion Gap 8 mEq/L 8-16 BUN 20 mg/dL 5-23 BUN/Creat 22.2 ratio Bilirubin,Total 0.5 mg/dL 0.2-1.2 Calcium 9.5 mg/dL 8.5-10.1 Carbon Dioxide 32 mEq/L High 18-29 Chloride 104 mmol/L 98-107 Creatinine 0.9 mg/dL 0.5-1.4 Globulin 3.5 g/dL 1.9-4.3 Glom Filtration Rate, Estimate >60 mL/min >60 Glucose 83 mg/dL 76-115 If >60 mL/min >60 27 Potassium 4.0 mmol/L 3.5-5.1 SGPT/Alt 23 U/L Low 30-65 Sgot/Ast 17 U/L 16-40 Sodium 140 mmol/L 136-145 Total Protein 7.0 g/dL 6.3-8.0 Basic Metabolic Panel 02/28/2013 Anion Gap 10 mEq/L 8-16 BUN 21 mg/dL 5-23 BUN/Creat 19.0 ratio Calcium 9.4 mg/dL 8.5-10.1 Carbon Dioxide 28 mEq/L 18-29 Chloride 105 mmol/L 98-107 Creatinine 1.1 mg/dL 0.5-1.4 Glom Filtration Rate, Estimate 53 mL/min >60 Glucose 108 mg/dL 76-115 If >60 mL/min >60 28 Potassium 3.4 mmol/L Low 3.5-5.1 Sodium 140 mmol/L 136-145 Laboratory test finding 02/28/2013 Bas% 0.4 % 0.0-1.1 Baso # 0.03 K/uL 0.0-0.1 Eo% 0.8 % 0.0-6.6 Eos # 0.06 K/uL 0.0-0.5 Hematocrit 41.4 % 36.0-46.1 Hemoglobin 14.1 gm/dL 11.6-15.8 Lymph # 2.30 K/uL 0.8-3.4 Lymph % 29.9 % 17.0-46.1 Mean Cell Volume 95.0 fl 80.9-99.0 Mean Corpuscular HGB 32.3 pg 25.9-32.7 Mean Corpuscular HGB Conc 34.1 g/dL 30.8-34.3 Mean Platelet Volume 9.7 fL 8.9-12.4 [place] # 0.75 K/uL 0.3-0.9 [place] % 9.7 % 4.3-13.2 Neut# 4.56 K/uL 1.0-7.0 Neut% 59.2 % 40.4-72.8 Platelet Count 201 K/uL 155-360 Red Blood Count 4.36 M/uL 3.90-5.40 Red Cell Distri Width %CV 12.9 % 11.7-14.4 Red Cell Distri Width SD 43.6 fl 3-47 White Blood Count 7.7 K/uL 3.1-10.7 Lipid Profile (Trig/Chol/HDL) 12/11/2012 Cholesterol 165 mg/dL Less than 200 Cholesterol/HDL Ratio 2.5 Average 1-4.44 HDL Cholesterol 66 mg/dL High 40-60 29 LDL Cholesterol 87.2 Less Than 100 30 Triglycerides 59 mg/dL 40-200 Comp Metabolic Panel 12/11/2012 Albumin 3.9 g/dL 3.2-5.2 Albumin/Globulin Ratio 1.6 1-3 Alkaline Phosphatase 50 U/L 30-110 Alt 20 U/L 14-54 Anion Gap 6.0 mmol/L 2-11 Ast 22 U/L 12-42 BUN/Creatinine Ratio 19.0 8-20 Blood Urea Nitrogen 19 mg/dL 6-24 Calcium 9.9 mg/dL 8.1-9.9 Chloride 103 mmol/L 101-111 Co2 Carbon Dioxide 30.0 mmol/L 22-32 Creatinine 1.00 mg/dL 0.50-1.40 Egfr 71.8 >60 31 Egfr Non- 55.8 >60 Globulin 2.4 g/dL 2-4 Glucose 95 mg/dL 70-100 Potassium 4.0 mmol/L 3.5-5.0 Sodium 139 mmol/L 133-145 Total Bilirubin 1.0 mg/dL 0.4-1.5 Total Protein 6.3 g/dL 6.2-8.1 CBC Auto Diff 12/11/2012 Abs Basophils 0 10^3/uL 0-0.2 Abs Eosinophils 0.1 10^3/uL 0-0.6 Abs Lymphocytes 1.9 10^3/uL 1.0-4.8 Abs Monocytes 0.7 10^3/uL 0-0.8 Abs Neutrophils 4.5 10^3/uL 1.5-7.7 Abs Nucleated RBC 0 10^3/uL Basophil % 0.4 % 0-2 Eosinophil % 1.2 % 0-6 Granulocyte % 62.1 % 38-83 Hematocrit 43 % 35-47 Hemoglobin 14.1 g/dL 12.0-16.0 Lymphocyte % 26.4 % 25-47 Mean Corpuscular HGB Conc 33 g/dL 31-36 Mean Corpuscular Hemoglobin 32 pg High 27-31 Mean Corpuscular Volume 97 fL 80-97 Mean Platelet Volume 8 um3 7.4-10.4 Monocyte % 9.9 % High 1-9 Nucleated Red Blood Cells % 0.1 Platelet Count 193 10^3/uL 150-450 Red Blood Count 4.42 10^6/uL 4.0-5.4 Red Cell Distribution Width 14 % 10.5-15 White Blood Count 7.3 10^3/uL 4.8-10.8 Laboratory test finding 12/11/2012 TSH (Thyroid Stimulating 2.10 miu/mL 0.34-5.60 Horm) Laboratory test finding 08/01/2012 CK 58 U/L 26-190 Thyroid Stim Hormone 2.71 uIU/mL 0.49-4.67 Troponin-I < 0.02 ng/mL 0.00-0.50 32 LDL Cholesterol Profile 08/01/2012 Cholesterol 124 mg/dL 120-200 HDL Cholesterol 64 mg/dL 29-83 LDL-Cholesterol 45 mg/dL Low 62-185 Triglycerides 75 mg/dL 16-231 Laboratory test finding 08/01/2012 CK 63 U/L 26-190 Troponin-I < 0.02 ng/mL 0.00-0.50 33 Laboratory test finding 07/31/2012 Bas% 0.4 % 0.0-1.1 Baso # 0.03 K/uL 0.0-0.1 CK 84 U/L 26-190 Eo% 1.0 % 0.0-6.6 Eos # 0.07 K/uL 0.0-0.5 Hematocrit 39.9 % 36.0-46.1 Hemoglobin 13.3 gm/dL 11.6-15.8 Lymph # 1.51 K/uL 0.8-3.4 Lymph % 22.6 % 17.0-46.1 Mean Cell Volume 95.9 fl 80.9-99.0 Mean Corpuscular HGB 32.0 pg 25.9-32.7 Mean Corpuscular HGB Conc 33.3 g/dL 30.8-34.3 Mean Platelet Volume 9.4 fL 8.9-12.4 [place] # 0.77 K/uL 0.3-0.9 [place] % 11.5 % 4.3-13.2 Neut# 4.31 K/uL 1.0-7.0 Neut% 64.5 % 40.4-72.8 Platelet Count 195 K/uL 155-360 Red Blood Count 4.16 M/uL 3.90-5.40 Red Cell Distri Width %CV 13.3 % 11.7-14.4 Red Cell Distri Width SD 45.5 fl 3-47 Troponin-I < 0.02 ng/mL 0.00-0.50 34 Urine Screen See Note 35 White Blood Count 6.7 K/uL 3.1-10.7 Basic Metabolic Panel 07/31/2012 Anion Gap 13 mEq/L 8-16 BUN 20 mg/dL 5-23 BUN/Creat 20.0 ratio Calcium 9.5 mg/dL 8.5-10.1 Carbon Dioxide 29 mEq/L 18-29 Chloride 106 mmol/L 98-107 Creatinine 1.0 mg/dL 0.5-1.4 Glom Filtration Rate, Estimate 59 mL/min >60 Glucose 124 mg/dL High 76-115 If >60 mL/min >60 36 Potassium 3.8 mmol/L 3.5-5.1 Sodium 144 mmol/L 136-145 Protime 07/31/2012 Inr 0.9 0.9-1.1 37 Protime 12.4 s 12.1-14.9 Urinalysis With Microscopic 07/31/2012 Urine Amorph Sediment Very Few Negative Urine Bacteria Very Few None Seen Urine Bilirubin - Dipstick Negative Negative Urine Blood Moderate High Negative Urine Clarity Clear Clear Urine Color Yellow Yellow Urine Epithelial Cells Few None Seen /lpf Urine Glucose - Dipstick Negative mg/dL Negative Urine Ketone Negative mg/dL Negative Urine Leuk Esterase Small High Negative Urine Mucus Small None Seen Urine Nitrite - Dipstick Negative Negative Urine PH 6.0 Low 6.5-7.5 Urine Protein - Dipstick Negative mg/dL Negative Urine RBC 5-10 rbc/hpf 0-7 Urine Specific [place] 1.025 1.010-1.030 Urine Uric Acid Crystals Few None Seen Urine Urobilinogen - Dipstick 0.2 E.U./dL 0.2-1.0 Urine WBC 2-5 wbc/hpf 0-7 Laboratory test 07/31/2012 Magnesium 1.8 mg/dL 1.7-2.3 finding Laboratory test 07/04/2012 S Run Date: finding <See Note> Laboratory test 06/18/2012 Creatinine 1.1 mg/dL 0.5-1.4 39 finding Laboratory test 05/07/2012 TSH (Thyroid 1.95 miu/mL 0.34-5.60 finding Stimulating Horm) CBC Auto Diff 05/07/2012 Abs Basophils 0 10^3/uL 0-0.2 Abs Eosinophils 0.1 10^3/uL 0-0.6 Abs Lymphocytes 2.4 10^3/uL 1.0-4.8 Abs Monocytes 0.8 10^3/uL 0-0.8 Abs Neutrophils 5.7 10^3/uL 1.5-7.7 Abs Nucleated RBC 0 10^3/uL Basophil % 0.4 % 0-2 Eosinophil % 1.1 % 0-6 Granulocyte % 62.7 % 38-83 Hematocrit 43 % 35-47 Hemoglobin 14.5 g/dL 12.0-16.0 Lymphocyte % 26.7 % 25-47 Mean Corpuscular HGB Conc 34 g/dL 31-36 Mean Corpuscular Hemoglobin 32 pg High 27-31 Mean Corpuscular Volume 94 fL 80-97 Mean Platelet Volume 8 um3 7.4-10.4 Monocyte % 9.1 % High 1-9 Nucleated Red Blood Cells % 0 Platelet Count 201 10^3/uL 150-450 Red Blood Count 4.52 10^6/uL 4.0-5.4 Red Cell Distribution Width 14 % 10.5-15 White Blood Count 9.1 10^3/uL 4.8-10.8 Comp Metabolic Panel 05/07/2012 Albumin 4.0 g/dL 3.2-5.2 Albumin/Globulin Ratio 1.7 1-3 Alkaline Phosphatase 50 U/L 30-110 Alt 18 U/L 14-54 Anion Gap 9.0 mmol/L 2-11 Ast 24 U/L 12-42 BUN/Creatinine Ratio 18.0 8-20 Blood Urea Nitrogen 18 mg/dL 6-24 Calcium 10.0 mg/dL High 8.1-9.9 Chloride 100 mmol/L Low 101-111 Co2 Carbon Dioxide 29.0 mmol/L 22-32 Creatinine 1.00 mg/dL 0.50-1.40 Egfr 72.0 >60 40 Egfr Non- 56.0 >60 Globulin 2.4 g/dL 2-4 Glucose 91 mg/dL 70-100 Potassium 4.1 mmol/L 3.5-5.0 Sodium 138 mmol/L 133-145 Total Bilirubin 1.0 mg/dL 0.4-1.5 Total Protein 6.4 g/dL 6.2-8.1 Lipid Profile (Trig/Chol/HDL) 05/07/2012 Cholesterol 184 mg/dL Less than 200 Cholesterol/HDL Ratio 2.8 Average 1-4.44 HDL Cholesterol 65 mg/dL High 40-60 41 LDL Cholesterol 100.0 mg/dL Less Than 100 42 Triglycerides 95 mg/dL 40-200 Laboratory test finding 08/01/2011 Hemoglobin A1c 5.5 % Less Than 6.0 43 TSH 2.07 MIU/ML 0.34-5.60 CBC Auto Diff 08/01/2011 Abs Basophils 0 0-0.2 Abs Eosinophils 0.1 0-0.6 Abs Lymphs 2.0 1.0-4.8 Abs Mononuclear 0.6 0-0.8 Absolute Neutrophil Count 4.6 1.5-7.7 Basophil % 0.4 % 0-2 Eosinophil % 1.2 % 0-6 Gran % 63.4 % 38-83 Hematocrit 39 % 35-47 Hemoglobin 13.8 g/dL 12.0-16.0 Lymph % 27.3 % 25-47 Mean Corpuscular HGB Cone 35 g/dL 32-36 Mean Corpuscular Hemoglob 33 pg High 27-31 Mean Corpuscular Volume 94 um3 79-97 Mean Platelet Volume 7.9 um3 7.4-10.4 Mononuclear % 7.7 % 1-9 Platelet Count 199 CUMM 150-450 Red Cell Count 4.16 CUMM Low 4.2-5.4 Redcell Distribution WDTH 14 % 10.5-15 White Blood Count 7.3 CUMM 4.8-10.8 Comp Metabolic Panel 08/01/2011 Albumin 3.8 GM/DL 3.2-5.2 Albumin/Globulin Ratio 1.6 1-3 Alkaline Phosphatase 50 U/L 30-110 Alt (SGPT) 19 U/L 14-54 Anion Gap 5.0 mmol/L 2-11 44 Ast (Sgot) 21 U/L 12-42 BUN 15 mg/dL 6-24 BUN/Creatinine Ratio 16.7 8-20 Bilirubin Total 0.3 mg/dL Low 0.4-1.5 45 Calcium 9.7 mg/dL 8.1-9.9 Chloride 104 mmol/L 101-111 Co2 (Carbon Dioxide) 31.0 mmol/L 22-32 Creatinine 0.9 mg/dL 0.50-1.40 Globulin 2.4 GM/DL 2-4 Glucose 100 mg/dL 70-100 One Over Creatinine 1.11 Potassium 3.9 mmol/L 3.5-5.0 Sodium 140 mmol/L 135-145 Total Protein 6.2 GM/DL 6.2-8.1 eGFR 81.3 > 60 46 eGFR Non- 63.2 > 60 H. Pylori Evaluation Quantitat 08/01/2011 H. Pylori Iga AB Negative Negative H. Pylori Igg AB <0.75 index () 47 H. Pylori Igm AB Negative Negative Lipid Profile (Trig/Chol/HDL) 08/01/2011 Cholesterol 163 mg/dL Less Than 200 48 Cholesterol/HDL Ratio 2.59 AVERAGE 1-4.44 High Density Lipoprotein 63 mg/dL High 40-60 49 Low Density Lipoprotein 79 mg/dL Less Than 100 50 Triglyceride 103 mg/dL 40-200 Liver Function Panel 08/01/2011 Bilirubin Direct 0.1 mg/dL 0.1-0.5 Indirect Bilirubin 0.2 mg/dL Low 0.3-1.0 51 Laboratory test finding 05/04/2011 Thyroid Stim Hormone 2.59 uIU/mL 0.49- 4.67 1 E78.00 I10 Z13.0 2 Reference Guidelines*: Desirable: ........... < 200 mg/dL Borderline High: ..... 200-239 mg/dL High: ................ >=240 mg/dL * The National Cholesterol Education Program (NCEP) 3 Reference Guidelines*: Normal: ............. < 150 mg/dL Borderline High: .... 150-199 mg/dL High: ............... 200-499 mg/dL Very High: .......... > 500 mg/dL * Source: National Cholesterol Education Program (NCEP) 4 Reference Guidelines*: Low HDL: ..... < 40 mg/dL Normal: ..... 40-60 mg/dL Desirable: ... > 60 mg/dL *The National Cholesterol Education Program(NCEP) 5 Reference Guidelines*: Optimal:........... <100 mg/dL Near Optimal....... 100-129 mg/dL Borderline High.... 130-159 mg/dL High............... 160-189 mg/dL Very High.......... >=190 mg/dL * Source: National Cholesterol Education Program (NCEP) 6 Note: Persistent reduction for 3 months or more in an eGFR <60 mL/min/1.73 m2 defines CKD. Patients with eGFR values >/=60 mL/min/1.73 m2 may also have CKD if evidence of persistent proteinuria is present. The original MDRD equation for estimated GFR is not valid for patients less than 18 years of age. Additional information may be found at www.kdoqi.org. 7 I10 E78.00 M15.9 Z00.00 Z11.59 E55.9 8 Vitamin D deficiency has been defined by the [place] [employer] and an Endocrine Society practice guideline as a level of serum 25-OH vitamin D less than 20 ng/mL (1,2). The Endocrine Society went on to further define vitamin D insufficiency as a level between 21 and 29 ng/mL (2). 1. IOM ([place] [employer]). 2010. Dietary reference intakes for calcium and D. [place]: The National Academies Press. 2. Bhargav DE LA O, Eboni URIBE, Amelia CARRILLO, et al. Evaluation, treatment, and prevention of vitamin D deficiency: an Endocrine Society clinical practice guideline. JCEM. 2010; 96(7):1911-30. Performed at: - [facility] [address] [id number] Editorial Intern: Marianne Siddiqi MD, Phone: [phone] 9 Negative <0.91 Equivocal 0.91 - 1.09 Positive >1.09 Performed at: - [facility] [address] [id number] Editorial Intern: Marianne Siddiqi MD, Phone: [phone] Performed at: - [facility] [id number] Editorial Intern: Yoav Sloan MD, Phone: [phone] 10 Negative: HCV RNA Not Detected 11 Note: Persistent reduction for 3 months or more in an eGFR <60 mL/min/1.73 m2 defines CKD. Patients with eGFR values >/=60 mL/min/1.73 m2 may also have CKD if evidence of persistent proteinuria is present. The original MDRD equation for estimated GFR is not valid for patients less than 18 years of age. Additional information may be found at www.kdoqi.org. 12 Reference Guidelines*: Desirable: ........... < 200 mg/dL Borderline High: ..... 200-239 mg/dL High: ................ >=240 mg/dL * The National Cholesterol Education Program (NCEP) 13 Reference Guidelines*: Normal: ............. < 150 mg/dL Borderline High: .... 150-199 mg/dL High: ............... 200-499 mg/dL Very High: .......... > 500 mg/dL * Source: National Cholesterol Education Program (NCEP) 14 Reference Guidelines*: Low HDL: ..... < 40 mg/dL Normal: ..... 40-60 mg/dL Desirable: ... > 60 mg/dL *The National Cholesterol Education Program(NCEP) 15 Reference Guidelines*: Optimal:........... <100 mg/dL Near Optimal....... 100-129 mg/dL Borderline High.... 130-159 mg/dL High............... 160-189 mg/dL Very High.......... >=190 mg/dL * Source: National Cholesterol Education Program (NCEP) 16 Note: Persistent reduction for 3 months or more in an eGFR <60 mL/min/1.73 m2 defines CKD. Patients with eGFR values >/=60 mL/min/1.73 m2 may also have CKD if evidence of persistent proteinuria is present. The original MDRD equation for estimated GFR is not valid for patients less than 18 years of age. Additional information may be found at www.kdoqi.org. 17 Reference Guidelines*: Desirable: ........... < 200 mg/dL Borderline High: ..... 200-239 mg/dL High: ................ >=240 mg/dL * The National Cholesterol Education Program (NCEP) 18 Reference Guidelines*: Normal: ............. < 150 mg/dL Borderline High: .... 150-199 mg/dL High: ............... 200-499 mg/dL Very High: .......... > 500 mg/dL * Source: National Cholesterol Education Program (NCEP) 19 Reference Guidelines*: Low HDL: ..... < 40 mg/dL Normal: ..... 40-60 mg/dL Desirable: ... > 60 mg/dL *The National Cholesterol Education Program(NCEP) 20 Reference Guidelines*: Optimal:........... <100 mg/dL Near Optimal....... 100-129 mg/dL Borderline High.... 130-159 mg/dL High............... 160-189 mg/dL Very High.......... >=190 mg/dL * Source: National Cholesterol Education Program (NCEP) 21 Note: Persistent reduction for 3 months or more in an eGFR <60 mL/min/1.73 m2 defines CKD. Patients with eGFR values >/=60 mL/min/1.73 m2 may also have CKD if evidence of persistent proteinuria is present. The original MDRD equation for estimated GFR is not valid for patients less than 18 years of age. Additional information may be found at www.kdoqi.org. 22 treated at time of visit 23 CALLED PT INR APTT TO KARIE Julien AT 1456 03/10/14 by [email or web address] QUERY: Anticoagulant Therapy? N QUERY: Date of Last Dose: QUERY: Time of Last Dose: 24 THERAPEUTIC INR RANGE: 2.0 - 3.0 DVT, Pulmonary embolus, prophylaxis against venous thrombosis or systemic embolization in high risk patients. 2.5 - 3.5 Mechanical heart valves 25 Performed at: RN - [facility] [address] [id number] Editorial Intern: Marianne Siddiqi MD, Phone: [phone] 26 Note: Persistent reduction for 3 months or more in an eGFR <60 mL/min/1.73 m2 defines CKD. Patients with eGFR values >/=60 mL/min/1.73 m2 may also have CKD if evidence of persistent proteinuria is present. The original MDRD equation for estimated GFR is not valid for patients less than 18 years of age. Additional information may be found at www.kdoqi.org. 27 Note: Persistent reduction for 3 months or more in an eGFR <60 mL/min/1.73 m2 defines CKD. Patients with eGFR values >/=60 mL/min/1.73 m2 may also have CKD if evidence of persistent proteinuria is present. The original MDRD equation for estimated GFR is not valid for patients less than 18 years of age. Additional information may be found at www.[email or web address]. 28 Note: Persistent reduction for 3 months or more in an eGFR <60 mL/min/1.73 m2 defines CKD. Patients with eGFR values >/=60 mL/min/1.73 m2 may also have CKD if evidence of persistent proteinuria is present. The original MDRD equation for estimated GFR is not valid for patients less than 18 years of age. Additional information may be found at www.[email or web address]. 29 HDL Interpretation: Undesirable: High Risk: Less than 40 mg/dL Desirable: Low Risk: Greater than 60 mg/dL 30 LDL Interpretation: Low Risk Optimal Level: LDL Less than 100 mg/dL Near or Above Optimal: LDL 100-129 mg/dL Borderline High Risk: LDL 130-159 mg/dL High Risk : LDL 160-189 mg/dL Very High Risk: LDL Greater than 189 mg/dL 31 Because ethnic data is not always readily available, this report includes an eGFR for both -Americans and non- Americans. The National Kidney Disease Education Program (NKDEP) does not endorse the use of the MDRD equation for patients that are not between the ages of 18 and 70, are , have extremes of body size, muscle mass, or nutritional status, or are non- or non-. According to the National Kidney Foundation, irrespective of diagnosis, the stage of the disease is based on the level of kidney function: Stage Description GFR(mL/min/1.73 m(2)) 1 Kidney damage with normal or decreased GFR 90 2 Kidney damage with mild decrease in GFR 60- 89 3 Moderate decrease in GFR 30-59 4 Severe decrease in GFR 15-29 5 Kidney failure <15 (or dialysis) 32 0 - 0.5 ng/mL: No evidence of myocardial injury 0.6 - 1.4 ng/mL: Mild elevation, suggesting possible myocardial injury > 1.4 ng/mL: Consistent with myocardial injury 33 0 - 0.5 ng/mL: No evidence of myocardial injury 0.6 - 1.4 ng/mL: Mild elevation, suggesting possible myocardial injury > 1.4 ng/mL: Consistent with myocardial injury 34 0 - 0.5 ng/mL: No evidence of myocardial injury 0.6 - 1.4 ng/mL: Mild elevation, suggesting possible myocardial injury > 1.4 ng/mL: Consistent with myocardial injury 35 07/31/12 LAB.RAP Deleted by [facility] 36 Note: Persistent reduction for 3 months or more in an eGFR <60 mL/min/1.73 m2 defines CKD. Patients with eGFR values >/=60 mL/min/1.73 m2 may also have CKD if evidence of persistent proteinuria is present. The original MDRD equation for estimated GFR is not valid for patients less than 18 years of age. Additional information may be found at www.kdoqi.org. 37 THERAPEUTIC INR RANGE: 2.0 - 3.0 DVT, Pulmonary embolus, prophylaxis against venous thrombosis or systemic embolization in high risk patients. 2.5 - 3.5 Mechanical heart valves 38 RUN DATE: 07/08/12 [facility] LAB LIVE PAGE 1 RUN TIME: [address] [place], [place] [address] Specimen Inquiry ----- Name: МАРИЯ HURTADO : [address]: Sanjuanita Gonzalez NP Acct: [id number] Unit: [id number] AGE: 61 Location: [facility] Re07/04/12 SEX: F Status: REG REF ----- SPEC: [id number] KONRAD: 07/04/12- SUBM DR: Sanjuanita Gonzalez NP REQ: [id number] RECD: 07/04/12154 STATUS: SOUT _ ORDERED: LEVEL IV FINAL DIAGNOSIS Breast, right, core biopsy: A. Benign breast tissue with non-proliferative fibrocystic changes. B. No evidence of neoplasia identified (see comment). COMMENTS: The specimen consists largely of adipose tissue with scattered areas of benign fibrous tissue with ectatic ducts and a few lobular elements. No evidence of malignancy is identified. Correlation with clinical and imaging findings is suggested. PRE-OPERATIVE DIAGNOSIS Right breast mass. GROSS DESCRIPTION The specimen is received in formalin labeled Мария Hurtado, Right Breast Mass and consists of multiple, marin-yellow, floating core fragments measuring 1.3 x 0.7 x 0.2 cm. Submitted entirely one cassette. Signed (signature on file) Олег Salvador MD 07/08/12 1539 ----- END OF REPORT * ML=Testing performed at Main Lab DEPARTMENT OF PATHOLOGY, [address] [place] [address] Олег Salvador M.D. Director [facility] Permit # [id number] FAX RESULTS TO [phone] ATTN: EDDIE 40 Because ethnic data is not always readily available, this report includes an eGFR for both -Americans and non- Americans. The National Kidney Disease Education Program (NKDEP) does not endorse the use of the MDRD equation for patients that are not between the ages of 18 and 70, are , have extremes of body size, muscle mass, or nutritional status, or are non- or non-. According to the National Kid[employer], irrespective of diagnosis, the stage of the disease is based on the level of kidney function: Stage Description GFR(mL/min/1.73 m(2)) 1 Kidney damage with normal or decreased GFR 90 2 Kidney damage with mild decrease in GFR 60- 89 3 Moderate decrease in GFR 30-59 4 Severe decrease in GFR 15-29 5 Kidney failure <15 (or dialysis) 41 HDL Interpretation: Undesirable: High Risk: Less than 40 MG/DL Desirable: Low Risk: Greater than 60 MG/DL 42 LDL Interpretation: Low Risk Optimal Level: LDL Less than 100 MG/DL Near or Above Optimal: LDL 100-129 MG/DL Borderline High Risk: LDL 130-159 MG/DL High Risk : LDL 160-189 MG/DL Very High Risk: LDL Greater than 189 MG/DL 43 THERAPEUTIC TARGET FOR THE TREATMENT OF DIABETES MELLITUS PATIENTS IS <7% HBA1C, AND IN SELECTIVE PATIENTS <6.0%. PLEASE REFER TO [employer] DIABETIC CARE GUIDELINES FOR FURTHER INFORMATION. 44 Anion gap measurement may be of limited value in the presence of any alkalosis, especially in a combined acid base disorder. . 45 A metabolite of Naproxen, O-desmethylnaproxen, has been shown to interfere with the Jendrassik-Lincoln method for measuring total bilirubin. Samples from patients who have taken Naproxen have shown spurious elevation in total bilirubin levels. 46 Because ethnic data is not always readily available, this report includes an eGFR for both -Americans and non- Americans. The National Kidney Disease Education Program (NKDEP) does not endorse the use of the MDRD equation for patients that are not between the ages of 18 and 70, are , have extremes of body size, muscle mass, or nutritional status, or are non- or non-. According to the National Kidney Foundation, irrespective of diagnosis, the stage of the disease is based on the level of kidney function: Stage Description GFR(mL/min/1.73 m(2)) 1 Kidney damage with normal or decreased GFR 90 2 Kidney damage with mild decrease in GFR 60- 89 3 Moderate decrease in GFR 30-59 4 Severe decrease in GFR 15-29 5 Kidney failure <15 (or dialysis) 47 -- REFERENCE VALUE -- <0.75 (Negative) 0.75-0.99 (Equivocal) >=1.00 ( Positive) Test Performed by: [facility] Dpt of Lab Med and Pathology [address] [place] [address] Plum Packer: Thad Curiel III, M.D. 48 CHOLESTEROL INTERPRETATION: Desirable: Less than 200 MG/DL Borderline-High Risk: 200-239 MG/DL High-Risk: 240 MG/DL and over 49 HDL INTERPRETATION: Undesirable: High Risk: Less than 40 MG/DL Desirable: Low Risk: Greater than 60 MG/DL 50 LDL INTERPRETATION: Low Risk Optimal Level: LDL Less than 100 MG/DL Near or Above Optimal: LDL 100-129 MG/DL Borderline High Risk: LDL 130-159 MG/DL High Risk : LDL 160-189 MG/DL Very High Risk: LDL Greater than 189 MG/DL 51 Please note updated reference range, effective 10/28/09 Procedures Date CPT Code Description Status Comment 09/21/2017 Mammogram Completed 08/24/2016 Bone Mineral Density Test Completed osteopenia 04/09/2016 Mammogram Completed 02/09/2016 Mammogram Completed 04/16/2015 38706 EKG-Tracing And Report Completed 12/08/2014 11625 Radiology, L-S Spine Complete Completed 12/08/2014 32167 Radiology, L-S Spine Complete Completed 08/27/2014 48565 EKG-Tracing And Report Completed 08/24/2014 Mammogram Completed 08/04/2013 95706 EKG-Tracing And Report Completed 08/01/2012 15272 Echocardiogram Complete Completed 05/14/2012 Mammogram Completed 05/09/2012 Mammogram Completed 05/11/2011 28995 ECHO Transthoracic Inc Completed Performance Continuous Electrocardio 04/24/2011 04705 Event Monitor Inter/Review Completed Only 04/24/2011 26957 EKG-Tracing And Report Completed 04/24/2011 37288 EKG-Tracing And Report Completed 09/20/2009 91036 Stress Test Physician Super Completed Only 09/20/2009 04527 Stress Test Interpre And Completed Report Only 04/09/[address] Davis in [place] - 10 years 04/09/1989 Flexible Sigmoidoscopy Completed Encounters Type Date Location Provider CPT E/M Dx Office Visit 12/31/2017 11:15a [place] [address] M54.31 Office Visit 12/20/2017 1:[place] [address] Z12.11 Office Visit 09/05/2017 10:15[place] [address] I47.1 J45.30 E78.00 I10 Z12.11 Office Visit 08/28/2016 10:45a Family Melissa Wang MD G0438 Z00.00 I10 E78.00 J45.20 I47.1 R60.0 M15.9 M81.8 Z23 Office Visit 07/28/2016 10:30a Family Lynn Zarco, 27292 R60.0 DATABASE ADMINISTRATOR-C Office Visit 01/10/2016 2:30p Family Lnyn Zarco, 70722 M19.041 DATABASE ADMINISTRATOR-C Office Visit 12/28/2015 1:00p Cardiology Office Dalton Tyson, 43843 R00.2 MSymone, [facility] Office Visit 11/10/2015 11:15a [place] [address] R23.3 Office Visit 08/16/2015 11:30a [place] [address] J45.20 R53.83 Office Visit 08/05/2015 3:00p [facility] [place] [address] J45.21 Office Visit 08/02/2015 4:30p [facility] [place] [address] J20.9 Office Visit 06/10/2015 10:00a Cardiology Office Paula Myrick, 24226 R00.2 MSN, DATABASE ADMINISTRATOR I10 E78.0 Office Visit 05/20/2015 8:40a Cardiology Office Dalton Tyson, 09202 R00.2 Lynnette, [facility] I10 E78.0 Office Visit 05/10/2015 3:30p Family Medicine Mackenzie Hernandez M.D. 91729 J04.0 I10 Office Visit 04/16/2015 8:30a Cardiology Office Paula Myrick, 24697 R00.2 MSN, DATABASE ADMINISTRATOR I10 Office Visit 02/22/2015 9:30a Family Mackenzie Lang M.D. 50366 E78.0 Z23 Office Visit 12/08/2014 9:45a Orthopaedic Office Jeff Malin M.D. 86809 724.9 Office Visit 12/01/2014 10:40a Family Mackenzie Lang 59169 719.45 MVenitaDVenita Office Visit 09/16/2014 1:00p Family Mackenzie Lang 08049 782.1 M.DVenita Office Visit 08/27/2014 11:30a Family Medicine Maribel Thompson, 72406 E906.4 [facility] Office Visit 08/27/2014 9:50a Cardiology Office Dalton Tyson, 26361 785.1 MVenitaDVenita, [facility] 401.1 272.0 Office Visit 08/19/2014 9:00a Family Mackenzie Lang M.D. 50726 V70.0 V72.31 272.4 401.1 733.09 V76.51 Office Visit 08/10/2014 3:30p [facility] Wayne Carmichael, 51401 112.1 DATABASE ADMINISTRATOR Office Visit 08/04/2013 9:00a Cardiology Office Paula Myrick, 71171 401.1 MSN, DATABASE ADMINISTRATOR 272.0 785.1 786.59 Office Visit 07/23/2012 8:40a Cardiology Office Dalton Tyson, 23153 780.4 M.D., FACC 786.59 785.1 Office Visit 05/27/2012 3:00p [place] [address] 793.89 V16.3 Office Visit 01/12/2012 2:30p Cardiology Office Paula Myrick, 33690 780.4 MSN, DATABASE ADMINISTRATOR 785.1 786.59 401.1 272.0 Office Visit 06/20/2011 3:00p Cardiology Office Dalton Tyson, 67539 785.1 M.D., FACC 786.59 401.1 Office Visit 05/17/2011 11:40a Cardiology Office Dalton Tyson, 41261 786.59 M.D., FACC 785.1 401.1 Office Visit 04/24/2011 11:00a Cardiology Office Paula Myricksree, 39788 786.59 MSN, DATABASE ADMINISTRATOR 272.0 785.1 401.1 Plan of Care Future Appointment(s):01/16/2018 11:50 am - Rudi Calix MD at Operating Room03/14/2018 9:00 am - Melissa Sanabria MD at [facility]12/31/2017 - Melissa Sanabria, MDM54.31 Sciatica, right sideComments:This is actually piraformis syndrome , I will give you a good handout and exercises.We don't need todo xrays at this point. You may see a massage therapist or get physical therapy for this but the exercises may take care of it. Aleve as needed, take with food or snack.Follow up:as needed
--- OUTSIDE RECORDS SUMMARY | 2018-01-19 11:09 | XMS REPORT ---
:1950 External Reference #:[id number] Author Organization [facility] Address [address] [place] [address] Phone [phone] Care Team Providers Name Role Phone Melissa Sanabria M.D. Care Team Information Residential Service Technician Unavailable Melissa Sanabria M.D. Primary Care Physician Unavailable Payers Type Date Identification Numbers Payment Provider Subscriber Medicare Primary Effective: Policy Number: Medicare-National Мария Hurtado 2002 [id number] PayID: [id number] [address] [place] [address] [facility] Part B Effective: Policy Number: [employer] Мария Hurtado 2014 [id number] Healthcare Group Name: [facility] Supplement Plan F Claim Division [address] [place] [address] Problems Date Description Provider Status Onset: 04/11/2012 Extrinsic asthma with asthma attack Karlie Sawyer M.D. Active Onset: 04/11/2012 Allergic rhinitis due to pollen Karlie Sawyer M.D. Active Onset: 04/11/2012 Allergic rhinitis Karlie Sawyer M.D. Active Onset: 04/11/2012 Dysfunction of eustachian tube Karlie Sawyer M.D. Active Onset: 05/16/2012 Extrinsic asthma without status Karlie Sawyer M.D. Active asthmaticus Onset: 12/03/2014 Body Mass Index Between 19-24 Adult Kiet Gomez M.D. Active Onset: 04/22/2015 Body mass index 20-24 - normal ROSS Gamez Active Onset: 04/22/2015 Palpitations Erica Rahman BUSINESS REPORTING DEVELOPER-BC Active Onset: 06/13/2016 Body mass index 20-24 - normal Melaniepaul Cason BUSINESS REPORTING DEVELOPER-C Active Onset: 06/13/2016 Allergic rhinitis due to animals Melaniepaul Cason BUSINESS REPORTING DEVELOPER-C Active Family History Date Family Member(s) Problem(s) Comments General Seasonal Allergies General Asthma General Hypertension General Kidney Disease General Bronchitis Father Kidney Disease First Daughter Seasonal Allergies First Daughter Asthma First Sister Seasonal Allergies First Sister Bronchitis First Sister Kidney Disease First Sister Hypertension Social History Type Date Description Comments Marital Status Legal Status: Lives With Spouse Home Environment 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 Home Environment Has a window air conditioner Home Environment The basement is dry Home Environment Finished Basement partial Home Environment Mattress is 1 year old Home Environment Mattress is not encased in an allergy proof case Home Environment Regular Mattress Home Environment Uses a dehumidifier Home Environment Pillows are not encased in an allergy proof case Home Environment Pillows are polyester Home Environment There are no draperies in the home Home Environment The home is not nicolas Home Environment The floors are wood with throw rugs Home Environment Uses baseboard heating Home Environment Uses hot water heating Home Environment [place] Home Environment Uses natural gas heating no CO detector, advised to obtain one Home Environment Water Source: [facility] Smoke-Free Home is smoke-free Pets None 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 ETOH Use Denies alcohol use Smoking Patient has never smoked Recreational Drug Use Denies Drug Use Allergies, Adverse Reactions, Alerts Date Description Reaction Status Severity Comments 04/11/2012 NKDA active Medications Medication Date Status Form Strength Qnty SIG Indications Ordering Provider Asmanex 12/27/ Active Aerosol 220mcg/Inh 1unit inhale two Kim Emily 2018 s puffs once Leonardo, 120 Metered daily BUSINESS REPORTING DEVELOPER-C Doses Ventolin HFA 04/22/ Active Aerosol 108(90Base 18gm 2 puffs J45.31 Erica 2015 ) mcg/Act every 4 Josiah, hours prn BUSINESS REPORTING DEVELOPER-BC sob, cough, wheeze Asmanex 01/13/ Active Aerosol 220mcg/Inh 1unit 2 493.02 Melanie Diaz 2014 s inhalations Yoav, 120 Metered once daily BUSINESS REPORTING DEVELOPER-C Doses Lipitor 00/ Active Tablets 10mg once a day Unknown 0000 Vitamin D / Active Capsules 1000Unit 2 tabs once Unknown 0000 a day Imipramine 00/ Active Tablets 25mg once a day Unknown HCL 0000 Claritin / Active Tablets 10mg 1 every day Unknown 0000 Flonase / Active Suspension 50mcg/Act 1 spray each Unknown Allergy 0000 nostril Relief everyday Omeprazole / Active Capsules DR 10mg 1 capsule Unknown 0000 daily Bystolic / Active Tablets 5mg 1/2 tab once Unknown 0000 a day Botox / Active Solution Rec 200Unit every three Unknown 0000 months Asmanex 12/27/ Hx Aerosol 220mcg/Inh 1unit inhale two Kim Twisthaler 2018 - s puffs once Leonardo, 120 Metered 12/27/ to twice BUSINESS REPORTING DEVELOPER-C Doses 2018 daily Immunizations CPT Code Status Date Vaccine Lot # 60725 Given Unknown Pneumococcal Vaccine 60597 Given Unknown Influenza Vaccine 74759 Given Unknown Influenza Vaccine Vital Signs Date Vital Result Comment 12/27/2017 Height 61 inches 5'1" Weight 120.00 lb Weight in kg's 54.432 Respiratory Rate 18 /min Heart Rate 80 /min O2 % BldC Oximetry 99 % BP Systolic 128 mmHg BP Diastolic 75 mmHg Asthma Control Test 25 BMI (Body Mass Index) 22.7 kg/m2 12/28/2016 Height 61 inches 5'1" Weight 117.00 lb Weight in kg's 53.071 Respiratory Rate 18 /min Heart Rate 83 /min O2 % BldC Oximetry 95 % BP Systolic 123 mmHg BP Diastolic 80 mmHg Asthma Control Test 25 BMI (Body Mass Index) 22.1 kg/m2 06/13/2016 Height 61 inches 5'1" Weight 120.00 lb Weight in kg's 54.432 Respiratory Rate 16 /min Heart Rate 92 /min O2 % BldC Oximetry 97 % BP Systolic 135 mmHg BP Diastolic 84 mmHg Asthma Control Test 24 BMI (Body Mass Index) 22.7 kg/m2 04/22/2015 Height 61 inches 5'1" Weight 119.00 lb Weight in kg's 53.978 Respiratory Rate 18 /min Heart Rate 100 /min O2 % BldC Oximetry 98 % BP Systolic 159 mmHg recheck 144/94 BP Diastolic 92 mmHg recheck 144/94 BMI (Body Mass Index) 22.5 kg/m2 12/03/2014 Height 61 inches 5'1" Weight 116.00 lb Weight in kg's 52.618 Respiratory Rate 17 /min Heart Rate 87 /min O2 % BldC Oximetry 97 % BP Systolic 124 mmHg BP Diastolic 84 mmHg Asthma Control Test 25 BMI (Body Mass Index) 21.9 kg/m2 06/04/2014 Height 61 inches 5'1" Weight 117.00 lb Weight in kg's 53.071 Respiratory Rate 20 /min Heart Rate 90 /min O2 % BldC Oximetry 98 % BP Systolic 160 mmHg LA 150/90 BP Diastolic 90 mmHg LA 150/90 Asthma Control Test 24 BMI (Body Mass Index) 22.1 kg/m2 11/27/2013 Height 61 inches 5'1" Weight 116.00 lb Weight in kg's 52.618 Respiratory Rate 18 /min Heart Rate 80 /min O2 % BldC Oximetry 98 % BP Systolic 128 mmHg BP Diastolic 70 mmHg BMI (Body Mass Index) 21.9 kg/m2 05/29/2013 Height 61 inches 5'1" Weight 116.00 lb Weight in kg's 52.618 Respiratory Rate 18 /min Heart Rate 79 /min O2 % BldC Oximetry 97 % BP Systolic 110 mmHg BP Diastolic 70 mmHg BMI (Body Mass Index) 21.9 kg/m2 11/21/2012 Height 61 inches 5'1" Weight 117.00 lb Weight in kg's 53.071 Respiratory Rate 18 /min Heart Rate 81 /min O2 % BldC Oximetry 98 % BP Systolic 120 mmHg BP Diastolic 80 mmHg BMI (Body Mass Index) 22.1 kg/m2 05/16/2012 Height 61.5 inches 5'1.50" Weight 118.00 lb Weight in kg's 53.525 Respiratory Rate 16 /min Heart Rate 72 /min O2 % BldC Oximetry 98 % BMI (Body Mass Index) 21.9 kg/m2 04/11/2012 Height 61.5 inches 5'1.50" Weight 118.00 lb Weight in kg's 53.525 Heart Rate 87 /min O2 % BldC Oximetry 96 % BMI (Body Mass Index) 21.9 kg/m2 Results Description No Information Procedures Date CPT Code Description Status 12/27/2017 30169 Pre PFT Completed 12/28/2016 63855 Pre PFT Completed 06/13/2016 25400 Pre PFT Completed 04/22/2015 47698 Pre PFT Completed 06/04/2014 68443 Pre PFT Completed 11/27/2013 88126 Pre PFT Completed 11/27/2013 60671 Pre PFT Completed 05/29/2013 81382 Pulmonary Function Test Completed 05/29/2013 75109 Pulmonary Function Test Completed 11/21/2012 30765 Oxygen Level - Pulse Oximiter Completed 05/16/2012 99820 Oxygen Level - Pulse Oximiter Completed 05/16/2012 71863 Pre PFT Completed 04/11/2012 92111 Skin Test Scratch # Of Units ____ Completed 04/11/2012 22808 Oxygen Level - Pulse Oximiter Completed 04/11/2012 96467 Pulmonary Function Test Completed 12/19/2005 75347 Skin Tests Id Completed 12/07/2005 29348 Skin Test Scratch # Of Units ____ Completed 12/07/2005 41080 Pulmonary Function Test Completed Encounters Type Date Location Provider CPT E/M Dx Office Visit 12/28/2016 10:00a [facility] LADONNA Barrett 14260 J45.30 J30.89 J30.81 J30.1 J30.2 Office Visit 06/13/2016 9:20a [facility] LADONNA Barrett 01354 J45.30 J30.89 J30.81 J30.1 J30.2 Z68.22 Office Visit 04/22/2015 9:20a [facility] RSOS Gamez 83676 J45.30 R00.2 Z68.22 Office Visit 12/03/2014 11:00a [facility] Kiet Gomez M.D. 96241 477.8 493.00 V85.1 Office Visit 06/04/2014 11:20a [facility] Kiet Gomez M.D. 73893 493.00 Office Visit 11/27/2013 9:20a [facility] ROSS Gamez 29527 493.00 Office Visit 05/29/2013 11:00a [facility] ROSS Gamez 17077 493.00 Office Visit 11/21/2012 11:00a [place] Kiet Gomez M.D. 12926 493.00 Office Visit 04/11/2012 9:00a [place] Karlie Sawyer M.D. 14742 493.02 477.0 477.8 381.81 493.00 Office Visit 12/26/2005 10:15a [facility] Tao Trevizo M.D. 75223 493.90 Office Visit 11/30/2005 11:15a [place] [facility] Lowell Verduzco, 03369 493.90 Lynnette Plan of Care Future Appointment(s):12/26/2018 10:00 am - AMANDA Dickinson-C at [place] Yloikr1712/27/2017 - AMANDA Dickinson-CJ30.81 Allergic rhinitis due to animal ( cat) (dog) hair and hmdawnO23.2 Other seasonal allergic jbglxngbI26.89 Other allergic jrokeileY66.30 Mild persistent asthma, uncomplicatedNew Medication: Asmanex Twisthaler 120 Metered Doses 220 mcg/InhAsmanex Twisthaler 120 Metered Doses 220 mcg/InhFollow up:f/u 12 months unless change in condition.Recommendations:Continue all medications as prescribed: Asthmanes Twisthaler 22o mcg- 2 inh in a.m.Ventolin as directed prn Cmczytoi03 mg daily Flonase nasal 50mcg 2 spray each nostril daily Refrain from wearing perfumes/ scented colognes while visiting our office. Continue environmental and aleergy avoidance measures you have inplace. Call if any change in condition.
[2018-01-19 11:54] VITALS: BP 111/67
--- NOTE | 2018-01-19 12:28 | UC ---
Complaint Female HPI - HPI Summary HPI Summary: 67-year-old female presents with urinary tract infection symptoms. HAD A COLONOSCOPY ON SUNDAY AND WAS FEELING VERY POORLY FROM THE PREP AND NOW HAS BLOOD IN URINE, FREQUENCY AND BURNING ON URINATION X1 DAY. Denies nausea vomiting or diarrhea. denies fevers. [ End ] - History Of Current Complaint Chief Complaint: UCGU Stated Complaint: BLOOD IN URINE Time Seen by Provider: 01/19/18 12:13 Hx Obtained From: Patient Onset/Duration: Gradual Onset Timing: Intermittent Pain Intensity: 0 Aggravating Factor(s): Urination Alleviating Factor(s): Nothing - Allergies/Home Medications Allergies/Adverse Reactions: Allergies Allergy/AdvReac Type Severity Reaction Status Date / Time HEART MED Allergy Palpitation Uncoded 01/19/18 11:51 s Home Medications: Home Medications Atorvastatin* [Lipitor 10 MG*] 10 mg PO DAILY 01/19/18 [History Confirmed ] Cholecalciferol TAB* [Vitamin D TAB*] 800 mg PO DAILY 01/19/18 [History Confirmed 01/19/18] Fluticasone NASAL SPRAY 50MCG* [Flonase NASAL SPRAY 50MCG*] 2 spray BOTH NARES DAILY 01/19/18 [History Confirmed 01/19/18] Imipramine HCl 25 mg PO DAILY 01/19/18 [History Confirmed 01/19/18] Loratadine 10 mg PO DAILY 01/19/18 [History Confirmed 01/19/18] Mometasone 110 MCG MDI * [Asmanex 110 MCG MDI *] 1 puff INH DAILY 01/19/18 [ History Confirmed 01/19/18] Nebivolol HCl [Bystolic] 5 mg PO DAILY 01/19/18 [History Confirmed 01/19/18] Omeprazole 20 mg PO DAILY 01/19/18 [History Confirmed 01/19/18] PMH/Surg Hx/FS Hx/Imm Hx Previously Healthy: Yes Endocrine History: Dyslipidemia - Surgical History Surgical History: Yes Surgery Procedure, Year, and Place: CSP- FUSION-SCREWS; Rt BREAST BIOPSY 94- BENIGN; 1987 HYSTERECTOMY; TONSILECTOMY - Family History Known Family History: Positive: None - Social History Occupation: Retired Lives: With Family Alcohol Use: Rare Alcohol Amount: 1/year Substance Use Type: None Smoking Status (MU): Never Smoked Tobacco Review of Systems Genitourinary: Dysuria, Hematuria, Frequency, Urgency Is Patient Immunocompromised?: No All Other Systems Reviewed And Are Negative: Yes Physical Exam Triage Information Reviewed: Yes Appearance: Well-Appearing, No Pain Distress, Well-Nourished Vital Signs: Initial Vital Signs Temp 98.3 F 01/19/18 11:48 Pulse 76 01/19/18 11:48 Resp 17 01/19/18 11:48 BP 111/67 01/19/18 11:48 Pulse Ox 100 01/19/18 11:48 Eye Exam: Normal ENT Exam: Normal Dental Exam: Normal Neck exam: Normal Neck: Positive: 1 Respiratory Exam: Normal Cardiovascular Exam: Normal Abdominal Exam: Normal Musculoskeletal Exam: Normal Neurological Exam: Normal Psychological Exam: Normal Skin Exam: Normal Complaint Female Dx - Differential Dx/Diagnosis Differential Diagnosis/HQI/PQRI: Ureteral Stone, Urinary Tract Infection Provider Diagnoses: UTI Discharge - Sign-Out/Discharge Documenting (check all that apply): Patient Departure All imaging exams completed and their final reports reviewed: No Studies - Discharge Plan Condition: Good Disposition: HOME Prescriptions: Fluconazole [Diflucan 150 MG (NF)] 150 mg PO ONCE #1 tab Sulfamethox/Trimethoprim DS* [Bactrim DS 800/160 TAB*] 1 tab PO BID #6 tab Patient Education Materials: Urinary Tract Infection in Women (ED), Hematuria ( ED) Referrals: Melissa Sanabria MD [Primary Care Provider] - 3 Days - Billing Disposition and Condition Condition: GOOD Disposition: Home
--- NOTE | 2018-01-22 07:08 | UC ---
- Progress Note Progress Note: urine culture : E.Coli resistance to Bactrim please call the pt. to stop Bactrim , will ERx Cephalexin 3 x per day for 10 days Discharge - Sign-Out/Discharge Documenting (check all that apply): Patient Departure All imaging exams completed and their final reports reviewed: No Studies - Discharge Plan Condition: Good Disposition: HOME Prescriptions: Cephalexin CAP* [Keflex 500 CAP*] 500 mg PO TID #30 cap Fluconazole [Diflucan 150 MG (NF)] 150 mg PO ONCE #1 tab Sulfamethox/Trimethoprim DS* [Bactrim DS 800/160 TAB*] 1 tab PO BID #6 tab Patient Education Materials: Urinary Tract Infection in Women (ED), Hematuria ( ED) Referrals: Melissa Sanabria MD [Primary Care Provider] - 3 Days - Billing Disposition and Condition Condition: GOOD Disposition: Home
== END 2018-01-19 12:45 | disposition home or self-care (01) ==
LOC: UCCORT 10:56
DX: N39.0 Urinary tract infection, site not specified (principal); B96.20 Unspecified Escherichia coli [E. coli] as the cause of diseases classified elsewhere; R31.9 Hematuria, unspecified; Z16.11 Resistance to penicillins; Z16.29 Resistance to other single specified antibiotic; Z88.8 Allergy status to other drugs, medicaments and biological substances; E78.5 Hyperlipidemia, unspecified
CPT/HCPCS: 81003; 87077; 87086; 87186; 99212; G0463

== ENCOUNTER → 2019-05-02 11:53 | Day surgery (SDC) | payer MEDICARE ==
[~2019-05-02 11:53] MED LIST changes: +Bacitracin OINTMENT* 0.5% 0.5 oz TUBE ONE; -Betamethasone INJ* 6 MG/ML 5 ML VIAL (30 MG) ONE; -Lidocain 1% EPI 1:100,000 * 30 ML MDV ONE; -Lidocaine 1% MPF* 2 ML VIAL ONE; +Lidocaine 1% w EPI 1:100,000* MDV 20 ML VIAL ONE; -Sodium Bicarbonate 8.4% SYR* 10 ML SYRINGE ONE
[2019-05-02 16:41] VITALS: BP 142/83
--- NOTE | 2019-05-03 02:57 | OP ---
DATE OF OPERATION: 05/02/19 - [facility] DATE OF : 46 SURGEON: Eric Casiano MD WHEEL PRESS OPERATOR: None. ANESTHESIA: Local. PRE-OP DIAGNOSIS: Neoplasm, uncertain behavior, left ear. POST-OP DIAGNOSIS: Neoplasm, uncertain behavior, left ear. OPERATIVE PROCEDURE: Excision of skin lesion left ear with primary closure. ESTIMATED BLOOD LOSS: Negligible. SPECIMENS: Left ear lesion with underlying cartilage to Pathology. INDICATIONS: This is a 68-year-old woman who has had a painful nodular ulcerative lesion of the left ear for over a year. She had a conservative excision done in the office by Dr. Colindres. 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 Unfortunately, the lesion recurred and became painful and ulcerated again. The decision was made to bring the patient to the operating room for a more definitive excision. DESCRIPTION OF PROCEDURE: She was brought to the operating room, positioned, the ear was cleansed with alcohol. The intended excision site was marked and approximately 2 cc of local anesthetic were used to infiltrate underneath the lesion as well as small area postauricularly should a skin graft have been necessary. The ear was then prepped with Betadine. The patient was draped sterilely and a time-out was performed. An elliptical incision was made around the lesion which was on the helix of the left ear. The vertical dimension of the excision was approximately 1-3/4 cm by about 1 cm wide. The skin was elevated off the underlying cartilage which was partially exposed through the essentially ulcerated area using an Iris scissors. Once the lesion was removed , the underlying cartilage was recontoured with a 15 blade and Iris scissors so that the antihelical fold would not be as prominent. Once this was done, the edges of the wound were undermined and it was apparent that wound would be able to be closed primarily. It was closed with 5-0 clear Ethilon using simple interrupted stitches. Bacitracin ointment was then applied and the patient was returned to the PACU. [id number] #: [id number] MTDD
== END | disposition home or self-care (01) ==
LOC: OR 11:53
PROVIDERS: ATTEND Otolaryngology
DX: H61.002 Unspecified perichondritis of left external ear (principal); I10 Essential (primary) hypertension; E78.00 Pure hypercholesterolemia, unspecified; J44.9 Chronic obstructive pulmonary disease, unspecified
CPT/HCPCS: 88305; A9270-GY